=== PATIENT | female | born 1930 | race Caucasian/White ===

== ENCOUNTER 2019-03-02 23:04 | Inpatient (IN) ==
[2019-03-03] MEDS ORDERED: Ondansetron 4 MG/2 ML VIAL IVP PRN (01:29)
[2019-03-03] MEDS ORDERED: Naloxone 0.4 MG/ML INJ IVP PRN (01:29)
--- NOTE | 2019-03-03 02:22 | Internal Med History&Physical ---
Date of Encounter: 03/03/19 Time of Encounter: 02:30 Internal Medicine - H&P: HPI Chief complaint: Left femur fracture Admitted From: Hospital to Hospital Transfer Plans for Post Hospital Care: Home History of present illness: Ms. Coker is a 88 year old female Patient presented to the [facility] after a fall. Daughters at bedside. According to the patient and family, the patient had gotten out of the car and was walking down the sidewalk at the house when she fell over into the yard. She denies losing consciousness, dizziness and does not remember tripping on anything. He daughter states that the patient was not acting strangely before or after the fall. Denies any lateralizing weakness. The patient at baseline but does have some ambulation difficulties, but does not use a walker or cane. She has had previous falls but nothing within the last several months. She was transported to [facility] for further evaluation. [facility] emergency department vital signs: Temperature 97.5, respiratory rate 9, pulse 80, blood pressure 212/78, O2 saturation 99% on room air. CBC: White count 8.9, hemoglobin 10.7, platelets 160. BMP: Notable for Potassium 5.1, creatinine 1.64, glucose 170. INR 1.0 Hip x-ray demonstrated acute fracture of the left femur, with displacement of the proximal left femoral diaphysis extending through the lesser trochanter. Chest x-ray showed no acute cardiopulmonary disease EKG: Sinus rhythm, rate 80, QTc 483ms, Similar to previous EKG At the [facility] emergency department patient received a total of 100 g of fentanyl. She was transferred to [facility] for further management. Upon my evaluation, patient is resting comfortably in hospital bed in no acute distress. Patient's daughters are at bedside. Patient denies chest pain, abdominal pain, nausea, vomiting, diarrhea and constipation. She denies weakness and vision changes. She does have history of stroke in the past 14 years ago but has not fully recovered. Patient is still complaining of left hip pain. The emergency department at [facility] contacted orthopedic surgery who will consult on the patient in the morning. Patient is full code. Past Med Surg Social Fam HX - Past Medical History Medical history: non-contributory, coronary artery disease, CVA, dementia, diabetes, GERD, hyperlipidemia, hypertension, thyroid disease Psychiatric history: depression - Past Surgical History Surgical History: appendectomy, hysterectomy, other Additional surgical history: heart stents - Social History Smoking Status: Never smoker Smokeless Tobacco Status: No Alcohol use: none Drug use: none - Family History Mother History Unknown: Yes Living Status: Father History Unknown: Yes Living Status: Sister History Unknown: Yes Living Status: Still Living Hx Family Cardiac Disorders: Yes (open heart surgery) Internal Medicine - H&P: Meds Aspirin 81 mg PO DAILY 07/04/15 [History] Cholecalciferol (Vitamin D3) [Vitamin D3] 1,000 unit PO DAILY 07/04/15 [History] Clopidogrel [Plavix] 75 mg PO DAILY 07/04/15 [History] Levothyroxine [Synthroid] 50 mcg PO DAILY 07/04/15 [History] Multivitamin [Multivitamins] 1 each PO DAILY 07/04/15 [History] Rosuvastatin [Crestor] 40 mg PO DAILY 07/04/15 [History] Vitamin E Acetate [Vitamin E] 1,000 unit PO DAILY 07/04/15 [History] Escitalopram [Lexapro] 10 mg PO DAILY #30 tablet 07/07/15 [Rx] Magnesium Oxide [Mag-Ox] 400 mg PO BID #60 tablet 07/07/15 [Rx] Pantoprazole Sodium 40 mg PO DAILY #30 tablet.dr 07/07/15 [Rx] Losartan Potassium [Cozaar] 50 mg PO DAILY 05/11/17 [History] Pioglitazone HCl [Actos] 30 mg PO DAILY 05/11/17 [History] Acetaminophen [Tylenol] 500 mg PO Q4HWA tablet 05/14/17 [Rx] Ascorbic Acid [Vitamin C] 500 mg PO DAILY #30 tablet 05/14/17 [Rx] Insulin Glargine,Hum.rec.anlog [Lantus Solostar] 40 unit SQ DAILY #0 05/14/17 [Rx] Iron 65 mg PO DAILY #0 05/14/17 [Rx] Allergy/AdvReac Type Severity Reaction Status Date / Time No Known Allergies Allergy Verified 03/26/18 18:06 All Systems PM: A 10-system review of systems was performed and is negative for pertinent findings except as documented above in the HPI. - Constitutional Vitals: Temp Pulse Resp BP Pulse Ox 97.7 F 82 16 168/75 95 03/03/19 01:42 03/03/19 01:42 03/03/19 01:42 03/03/19 01:42 03/03/19 01:42 General appearance: Present: cooperative, A&O X 3, pleasant, no acute distress, answers questions appropriately Exam: - - Head Head exam: Present: normal inspection - Eye Eye exam: Present: EOMI, normal appearance - Respiratory Respiratory exam: Present: CTAB. Absent: rales, respiratory distress, rhonchi, wheezes - Cardiovascular Cardiovascular exam: Present: RRR. Absent: diastolic murmur, systolic murmur - GI/Abdominal GI/Abdominal exam: Present: normal bowel sounds, soft. Absent: tenderness - Extremities Exam Extremities exam: Present: tenderness, warm, radial pulses palpable and symmetrical. Absent: calf tenderness, pedal edema Additional comments: Left hip pain with palpation. Patient has increased pain with movement. - Neurological Exam Neurological exam: Present: alert, CN II-XII intact, oriented X3, no focal deficits, strengths equal and symetr throughout. Absent: altered, motor sensory deficit, pronater drift, facial droop, speech deficit - Skin Skin exam: Present: dry, normal color, warm - Assessment and Plan (1) Fracture of femur Current Visit: No Status: Acute Assessment and plan: As seen on left hip x-ray. Patient has an acute fracture of the left femur with displacement. Orthopedic surgery called from [facility], will consult in the morning. Nothing by mouth Pain management as needed Follow-up orthopedic surgery recommendations Sexton catheter Qualifiers: Encounter type: initial encounter Femur location: lesser trochanter Fracture type: closed Fracture alignment: displaced Laterality: left Qualified Code(s): S72.122A - Displaced fracture of lesser trochanter of left femur, initial encounter for closed fracture (2) Acute kidney injury Current Visit: No Status: Acute Assessment and plan: Elevated creatinine from baseline. Patient has history of chronic kidney disease stage III. Not given IV fluids at the [facility] emergency room department. Start IV fluid hydration Repeat a.m. labs Avoid nephrotoxic medications Renally dose meds (3) Anemia Current Visit: No Status: Acute Assessment and plan: Likely secondary to chronic disease. Patient is at baseline. Continue to monitor. Qualifiers: Anemia type: due to chronic kidney disease Chronic kidney disease stage: stage 3 (moderate) Qualified Code(s): N18.3 - Chronic kidney disease, stage 3 (moderate); D63.1 - Anemia in chronic kidney disease (4) Hypertension Current Visit: No Status: Acute Assessment and plan: Likely secondary to pain. Blood pressure noted at [facility] with a systolic greater than 200, left untreated at the emergency department. Repeat blood pressure upon arrival 168/75. In team to monitor blood pressure When necessary hydralazine Continue to monitor Qualifiers: Hypertension type: unspecified Qualified Code(s): I10 - Essential (primary) hypertension (5) Diabetes mellitus Current Visit: No Status: Chronic Assessment and plan: Patient is an insulin dependent diabetic Monitor sugars Q6H NPO until surgical evaluation Low dose insulin sliding scale as needed Hold home meds. Qualifiers: Diabetes mellitus type: type 2 Diabetes mellitus detention insulin use: with detention use Diabetes mellitus complication status: with hyperglycemia Qualified Code(s): E11.65 - Type 2 diabetes mellitus with hyperglycemia; Z79.4 - intermediate accountant (current) use of insulin (6) DVT prophylaxis Current Visit: Yes Status: Acute Assessment and plan: SCDs - Time Spent With Patient Total time spent is greater than 50% in coordination of care (as documented) at patient's floor/unit and/or counseling patient:
[2019-03-03] MEDS ORDERED: 0.9 % Sodium Chloride 1,000 ML IVC ONE (04:11)
[2019-03-03] MEDS ORDERED: D5% in Water 1,000 ML IVC PRN (04:14)
[2019-03-03] MEDS ORDERED: Dextrose Gel 15 GM/37.5 ML TUBE PO PRN ×2 (04:14)
[2019-03-03] MEDS ORDERED: *HR* Dextrose 50 % in Water (Syg) 50 ML SYRINGE IVP PRN (04:14)
[2019-03-03 04:20] LABS: Hematocrit 32.7 % (35.3-44.9); Hemoglobin 10.2 g/dL (11.5-15.4); Mean Corpuscular HGB Conc 31.2 g/dL (31.6-35.5); Mean Corpuscular Hemoglobin 30.2 pg (28.0-33.3); Mean Corpuscular Volume 96.7 fL (83.0-100.0); Mean Platelet Volume 9.9 fL (9.4-12.4); Platelet Count 166 K/mcL (140-400); Red Blood Count 3.38 M/mcL (3.82-4.97); Red Cell Distribution Width 13.3 % (11.5-14.5); White Blood Count 15.4 K/mcL (4.3-11.1)
[2019-03-03 04:38] LABS: Calcium 9.1 mg/dL (8.6-10.3); Potassium 6.1 mEq/L (3.5-5.1)
[2019-03-03] MEDS ORDERED: Insulin LISPRO 300 UNITS/3 ML VIAL SQ SCH (06:00)
--- NOTE | 2019-03-03 07:35 | Event Note ---
Date of Encounter: 03/03/19 Time of Encounter: 07:32 Ivana Coker is an 88 F w hx dementia, CAD, CVA, HTN, HLD, DM2, CKD3b, hypothyroidism, GERD, who p/w hip pain after a fall, XR showing L subtrochanteric femur fx. Hyperkalemia: likely 2/2 CEASAR below, ECG w/o changes from baseline - repeat ECG - tele - give 500cc bolus and then resume MIVF - repeat BMP in a few hours - holding ARB CEASAR on CKD3b: noted, fluids as above and monitor L Femur Fracture: XR showing displaced fx of proximal L femoral diaphysis extending through lesser troch - Ortho consulted - NPO - NWB until surgery - PT/OT consults - supportive care for pain/nausea CAD/CVA/HLD: home ASA, plavix, crestor DM2: w hyperglycemia, holding actos, continue lantus 40 and use SSI GERD: home PPI Hypothyroidism: home synthroid 50 Dementia: oriented, lives at home, however does have noticeable short term memory deficits PPx: SCDs then sqh after surgery Tele: yes Activity: per Ortho FEN: NPO then cardiac ADA after surgery, MIVF NS@125 Lines: PIV Consults: Ortho Code: Full Dispo: patient requires inpatient eval and management at this time, anticipate 2-3 days, will need SNF
[2019-03-03] MEDS: Insulin LISPRO 300 UNITS/3 ML VIAL SQ SCH ×4 (08:32→22:24)
[2019-03-03] MEDS: Aspirin 81 MG TAB.CHEW PO SCH (08:40)
[2019-03-03] MEDS ORDERED: Insulin DETEMIR 100 UNIT/ML X5UNITS SQ SCH (09:00)
[2019-03-03] MEDS: 0.9 % Sodium Chloride 500 ML IVC SCH (09:08)
[2019-03-03 10:19] LABS: Potassium 5.3 mEq/L (3.5-5.1)
[2019-03-03 10:20] LABS: Calcium 8.2 mg/dL (8.6-10.3)
[2019-03-03] MEDS ORDERED: Acetaminophen 325 MG TABLET PO SCH (16:00)
[2019-03-03] MEDS: Acetaminophen 325 MG TABLET PO SCH ×2 (16:46→22:19)
[2019-03-03] MEDS: 0.9 % Sodium Chloride 1,000 ML IVC SCH (16:46)
[2019-03-03] MEDS ORDERED: ceFAZolin 2,000 MG in Water for inj. (sterile) 20 ML IVP ONE (21:38)
[2019-03-03] MEDS ORDERED: 0.9 % Sodium Chloride 250 ML IVC SCH (21:45)
--- NOTE | 2019-03-03 21:47 | Orthopedic Consult Note ---
Date of Encounter: 03/03/19 Time of Encounter: 21:40 History of Present Illness Chief complaint: Left hip and thigh pain HPI: Ms. Coker is a 88 year old female who sustained a mechanical fall in her backyard at home late yesterday evening. She initially presented to [facility] with the complaints of pain and inability to ambulate. She had x-rays taken that revealed evidence of a complex left femur fracture. She is admitted for further evaluation and management. Patient denies dizziness vertigo blackouts etc. Denies neurovascular complaints. Denies any other injuries. The patient has had some difficulty with left hip pain in the past. I reviewed the patient's history and physical examination as well as the completed medical record. Pertinent orthopedic examination reveals the left lower extremity to be held in a shortened and minimally rotated position. Distal neurovascular exam is grossly intact. X-rays reveal a proximal femur fracture. Patient also has a severely arthritic hip. Interpretation of the x-rays are extremely difficult due to the presence of the backboard as well as the limited ability to obtain a full true lateral x-ray. This does appear to be a relatively long oblique fracture in the proximal femoral diaphysis. Laboratory data includes a hemoglobin of 10.2 with a platelet count of 166. White blood cell count is 15.4. The patient does have an elevated potassium at 5.3 with an elevated BUN of 32 and a creatinine of 1.72. Impression: Fracture left proximal femur with advanced arthritis left hip Recommendation: Discussed with the patient and her daughters (who have power of contract attorney) the difficulty in treating this fracture that is further complicated by the advanced arthritic hip. Unfortunately, treatment to address both would be extremely difficult and not recommended. Recommend that we proceed with intramedullary nailing of the fracture with a long nail. Would also recommend proceeding with a limited open reduction and cerclage cabling of the fracture by her to nailing to obtain a near anatomic reduction. The patient and family are aware of the diagnosis and management. We discussed the surgical procedure as well as the potential risks and complications including but not limited to bleeding, infection, blood clots, nerve injury, persistent hip stiffness as well as no definitive treatment for the arthritic hip, malunion, delayed or nonunion as well as leg length or rotational deformities. They understand and agree with the plan of care as outlined. Informed consent has been obtained. I scheduled her for surgery tomorrow when operating time is available. We will have blood available as anticipate the patient having a significant amount of blood loss secondary to fracture hematoma. Thank you very much for allowing me to see and care for Mrs. Coker. Sincerely, Ladarius Mishra,DO Past Med Surg Social Fam HX - Past Medical History Medical history: non-contributory, coronary artery disease, CVA, dementia, diabetes, GERD, hyperlipidemia, hypertension, thyroid disease Psychiatric history: depression - Past Surgical History Surgical History: appendectomy, hysterectomy, other Additional surgical history: heart stents - Social History Smoking Status: Never smoker Smokeless Tobacco Status: No Alcohol use: none Drug use: none - Family History Mother History Unknown: Yes Living Status: Father History Unknown: Yes Living Status: Sister History Unknown: Yes Living Status: Still Living Hx Family Cardiac Disorders: Yes (open heart surgery) Medications and Allergies Aspirin 81 mg PO DAILY 07/04/15 [History] Cholecalciferol (Vitamin D3) [Vitamin D3] 1,000 unit PO DAILY 07/04/15 [History] Clopidogrel [Plavix] 75 mg PO DAILY 07/04/15 [History] Levothyroxine [Synthroid] 50 mcg PO DAILY 07/04/15 [History] Multivitamin [Multivitamins] 1 tab PO DAILY 07/04/15 [History] Rosuvastatin [Crestor] 40 mg PO DAILY 07/04/15 [History] Vitamin E Acetate [Vitamin E] 1,000 unit PO DAILY 07/04/15 [History] Magnesium Oxide [Mag-Ox] 400 mg PO BID #60 tablet 07/07/15 [Rx] Losartan Potassium [Cozaar] 50 mg PO DAILY 05/11/17 [History] Pioglitazone HCl [Actos] 30 mg PO DAILY 05/11/17 [History] Ascorbic Acid [Vitamin C] 500 mg PO DAILY #30 tablet 05/14/17 [Rx] Escitalopram [Lexapro] 20 mg PO DAILY 03/03/19 [History] Ferrous Sulfate [Iron] 325 mg PO BID 03/03/19 [History] Insulin Glargine,Hum.rec.anlog [Basaglar Kwikpen U-100] 20 unit SQ QPM 03/03/19 [History] Pantoprazole Sodium [Protonix] 40 mg PO DAILY 03/03/19 [History] Allergy/AdvReac Type Severity Reaction Status Date / Time No Known Allergies Allergy Verified 03/26/18 18:06 All Systems Reviewed: The remainder of the systems were reviewed and are negative Physical Exam - Constitutional Vitals: Temp Pulse Resp BP Pulse Ox 99.0 F 84 16 132/69 93 03/03/19 19:03 03/03/19 19:03 03/03/19 19:03 03/03/19 19:03 03/03/19 19:03 Results - Labs Result Diagrams: 03/03/19 03:38 03/03/19 09:49 Labs: Abnormal lab results WBC 15.4 K/mcL (4.3-11.1) H D 03/03/19 03:38 RBC 3.38 M/mcL (3.82-4.97) L 03/03/19 03:38 Hgb 10.2 g/dL (11.5-15.4) L 03/03/19 03:38 Hct 32.7 % (35.3-44.9) L 03/03/19 03:38 MCHC 31.2 g/dL (31.6-35.5) L 03/03/19 03:38 Sodium 135 mEq/L (136-145) L 03/03/19 09:49 Potassium 5.3 mEq/L (3.5-5.1) H 03/03/19 09:49 BUN 32 mg/dL (8-23) H 03/03/19 09:49 Creatinine 1.72 mg/dL (0.60-1.20) H 03/03/19 09:49 Est GFR ( Amer) 34 (> 60) L 03/03/19 09:49 Est GFR (Non-Af Amer) 28 (> 60) L 03/03/19 09:49 Glucose 189 mg/dL (70-105) H 03/03/19 09:49 POC Glucose 202 mg/dL (70-99) H 03/03/19 05:52 Calcium 8.2 mg/dL (8.6-10.3) L 03/03/19 09:49 H & H 03/03/19 Range/Units 03:38 Hgb 10.2 L (11.5-15.4) g/dL Hct 32.7 L (35.3-44.9) % All other labs normal. - Diagnostic results Hip AP/Lateral x-ray: image reviewed Consult Discharge Plan - Plan Referrals: NONE,PCP [Primary Care Provider] -
[2019-03-04] MEDS: 0.9 % Sodium Chloride 1,000 ML IVC SCH ×3 (04:01→21:04)
[2019-03-04 05:24] LABS: Hematocrit 26.7 % (35.3-44.9); Mean Corpuscular HGB Conc 30.3 g/dL (31.6-35.5); Mean Corpuscular Hemoglobin 30.1 pg (28.0-33.3); Mean Corpuscular Volume 99.3 fL (83.0-100.0); Mean Platelet Volume 9.8 fL (9.4-12.4); Platelet Count 128 K/mcL (140-400); Red Blood Count 2.69 M/mcL (3.82-4.97); Red Cell Distribution Width 13.4 % (11.5-14.5); White Blood Count 9.8 K/mcL (4.3-11.1)
[2019-03-04 05:29] LABS: Hemoglobin 8.1 g/dL (11.5-15.4)
[2019-03-04 05:44] LABS: Calcium 8.2 mg/dL (8.6-10.3); Magnesium 1.8 mg/dL (1.6-2.6); Potassium 5.2 mEq/L (3.5-5.1)
--- NOTE | 2019-03-04 08:35 | Internal Med Progress Note ---
Hospitalist Progress Note - Encounter Date of Encounter: 03/04/19 Time of Encounter: 08:33 - Subjective Interval History: States that her pain is much better controlled today. Daughters present who have several questions which were answered. Pt denies acute needs or pain. No numbness in LLE. No CP, palpitations, SOB, cough, N/V/D. - Exam Vitals: Temp Pulse Resp BP Pulse Ox 98.1 F 79 20 145/69 97 03/04/19 06:35 03/04/19 06:35 03/04/19 06:35 03/04/19 06:35 03/04/19 06:35 Exam: General: NAD, good eye contact, well appearing, elderly Thoracic: Normal breath sounds b/l, no wheezing or crackles Cardio: Normal S1 and S2, regular rate and rhythm Abdomen: Soft, nontender Extremities: Warm, well perfused. DP pulses 2+ b/l. No edema. Skin: Intact. No rashes, bruises, or ulcers Neuro: Awake, fully oriented. Speech fluent. Poor short term memory, decent concentration and attention. - Summary of Assessment and Plan Summary of Assessment and Plan: Ivana Coker is an 88 F w hx dementia, CAD, CVA, HTN, HLD, DM2, CKD3b, hypothyroidism, GERD, who p/w hip pain after a fall, XR showing L subtrochanteric femur fx. L Femur Fracture: XR showing displaced fx of proximal L femoral diaphysis extending through lesser troch - Ortho consulted - NPO - NWB until surgery - PT/OT consults - supportive care for pain/nausea Acute blood loss anemia (poa): 2/2 femur fx - maintain T&C - 2u telephone switchboard operator to OR - maintain Hb >7 Hyperkalemia: likely 2/2 CEASAR below, ECG w/o changes from baseline - repeat ECG - tele - give 500cc bolus and then resume MIVF - repeat BMP in a few hours - holding ARB CEASAR on CKD3b: noted, fluids as above and monitor CAD/CVA/HLD: home ASA, plavix, crestor DM2: w hyperglycemia, holding actos, continue lantus 40 and use SSI GERD: home PPI Hypothyroidism: home synthroid 50 Dementia: oriented, lives at home, however does have noticeable short term memory deficits PPx: SCDs then sqh after surgery Tele: yes Activity: per Ortho FEN: NPO then cardiac ADA after surgery, MIVF NS@125 until after surgery Lines: PIV Consults: Ortho Code: Full Dispo: patient requires inpatient eval and management at this time, anticipate 2-3 days, will need SNF Internal Medicine: Result - Labs CBC & Chem 7: 03/04/19 04:48 03/04/19 04:48 Labs: Short CBC 03/04/19 Range/Units 04:48 WBC 9.8 (4.3-11.1) K/mcL Hgb 8.1 L D (11.5-15.4) g/dL Hct 26.7 L (35.3-44.9) % Plt Count 128 L (140-400) K/mcL BMP 03/03/19 03/04/19 09:49 04:48 Sodium 135 L 136 Potassium 5.3 H 5.2 H Chloride 105 105 Carbon Dioxide 24 22 L BUN 32 H 31 H Creatinine 1.72 H 1.70 H Glucose 189 H 177 H Calcium 8.2 L 8.2 L Consult Discharge Plan - Plan Referrals: NONE,PCP [Primary Care Provider] -
[2019-03-04] MEDS: Acetaminophen 325 MG TABLET PO SCH ×3 (08:59→21:04)
[2019-03-04] MEDS ORDERED: Insulin DETEMIR 100 UNIT/ML X5UNITS SQ SCH (09:00)
[2019-03-04] MEDS: Aspirin 81 MG TAB.CHEW PO SCH (09:00)
[2019-03-04] MEDS: Insulin LISPRO 300 UNITS/3 ML VIAL SQ SCH ×4 (09:01→21:03)
--- NOTE | 2019-03-04 17:28 | Anesthesia Evaluation PreOp ---
Date of Encounter: 03/04/19 Time of Encounter: 17:26 - Past History Planned Operation: Left Femur IM nail Cardiac History: HTN, Hyperlipidemia, Cardiac Stent Pulmonary History: Denies Any Significant HX PROSTHETIST History: CVA, Other (dementia) Other Medical History: Renal (CEASAR on CKD stage 3b), Diabetes Type II, Thyroid (hypo), GERD, Other (anemia) Anesthesia History: No Prior Anesthetic Complications, Past Anesthesia (appy, hysterectomy) Alcohol Use: none Drug use: none Medications and Allergies Aspirin 81 mg PO DAILY 07/04/15 [History] Cholecalciferol (Vitamin D3) [Vitamin D3] 1,000 unit PO DAILY 07/04/15 [History] Clopidogrel [Plavix] 75 mg PO DAILY 07/04/15 [History] Levothyroxine [Synthroid] 50 mcg PO DAILY 07/04/15 [History] Multivitamin [Multivitamins] 1 tab PO DAILY 07/04/15 [History] Rosuvastatin [Crestor] 40 mg PO DAILY 07/04/15 [History] Vitamin E Acetate [Vitamin E] 1,000 unit PO DAILY 07/04/15 [History] Magnesium Oxide [Mag-Ox] 400 mg PO BID #60 tablet 07/07/15 [Rx] Losartan Potassium [Cozaar] 50 mg PO DAILY 05/11/17 [History] Pioglitazone HCl [Actos] 30 mg PO DAILY 05/11/17 [History] Ascorbic Acid [Vitamin C] 500 mg PO DAILY #30 tablet 05/14/17 [Rx] Escitalopram [Lexapro] 20 mg PO DAILY 03/03/19 [History] Ferrous Sulfate [Iron] 325 mg PO BID 03/03/19 [History] Insulin Glargine,Hum.rec.anlog [Basaglar Kwikpen U-100] 20 unit SQ QPM 03/03/19 [History] Pantoprazole Sodium [Protonix] 40 mg PO DAILY 03/03/19 [History] Allergy/AdvReac Type Severity Reaction Status Date / Time No Known Allergies Allergy Verified 03/26/18 18:06 - Meds/Allergy Pre-op Review Medications Reviewed: Yes Allergies Reviewed: Yes Beta Blockers on Current Med List: No Anesthesia Results - Labs 03/04/19 04:48 03/04/19 04:48 - Imaging EKG: report reviewed (Interpretive Statements Sinus rhythm Anterior Q waves, possibly due to LVH Electronically Signed On 03-03-2019 16:46:19 EDT by Paul Ward) Anesthesia Exam Vital Signs/O2 Sat, Most Current Temp Pulse Resp BP Pulse Ox 98.9 F 87 16 150/60 100 03/04/19 14:29 03/04/19 14:29 03/04/19 14:29 03/04/19 14:29 03/04/19 14:29 Weight: 100kg NPO (# of Hours): MN - HEENT Pupil (Motor): Pupils equal, EOMI Mallampati: II Teeth: Edentulous Oral Opening: Greater than 3 - PROSTHETIST PROSTHETIST Motor: Normal RUE, Normal LUE, Normal RLE, Normal Face, Deficit LLE (femur fracture) PROSTHETIST Sensory: Normal: RUE, LUE, RLE, LLE, Face - Cardiac Rhythm: Regular - Pulmonary Breath Sounds: bilateral Clear Respiratory Effort: Symmetrical Anesthesia Assess/Plan ASA Score: 3 Level of consciousness: Oriented Anesthetic Plan: General Monitoring Plan: Standard Monitors Recovery Plan: PACU
[2019-03-04] MEDS ORDERED: *HR* Rocuronium Bromide 50 MG/5 ML VIAL ONE (21:07)
[2019-03-04] MEDS ORDERED: *HR* FentaNYL (PF) 100 MCG/2 ML VIAL ONE ×2 (21:07→23:52)
[2019-03-04] MEDS ORDERED: *HR* Propofol 200 MG/20 ML VIAL IVP ONE (21:07)
[2019-03-04] MEDS ORDERED: Lidocaine -MPF 2% 2 ML VIAL ONE (21:07)
[2019-03-04] MEDS ORDERED: Acetaminophen IV 1,000 MG/100 ML INFUS..BTL ONE (21:18)
[2019-03-04] MEDS ORDERED: *HR* FentaNYL (PF) 100 MCG/2 ML VIAL IVP PRN (21:30)
[2019-03-04] MEDS ORDERED: Naloxone 0.4 MG/ML INJ IVP PRN (21:30)
[2019-03-04] MEDS ORDERED: Dexamethasone 4 MG/ML VIAL ONE (22:14)
[2019-03-04] MEDS: 0.9 % Sodium Chloride 500 ML IVC SCH ×4 (22:36→23:27)
[2019-03-05] MEDS: 0.9 % Sodium Chloride 1,000 ML IVC SCH ×3 (00:04→05:25)
[2019-03-05] MEDS ORDERED: Neostigmine Methylsulfate 3 MG/3 ML SYRINGE ONE (00:29)
--- NOTE | 2019-03-05 01:12 | Operative Note ---
Date of procedure: 03/05/19 Pre-op diagnosis: Displaced left proximal femur fracture Post-op diagnosis: same Procedure: 1. Open reduction internal fixation/intramedullary nailing left femur fracture 2. Fluoroscopic guidance for ORIF/IM nailing left femur fracture Implants: Synthes 11 mm x 400 mm x 130 degree angle TFN A with a 90 mm x 11 mm helical blade and a 48 mm x 5.0 mm distal locking screw and a 1.7 mm braided cable Complications: None Anesthesia: GETA Surgeon: Ladarius Mishra Was there an electrician station assistant present: No Estimated blood loss (cc): 400 Specimen: None Condition: stable Disposition: PACU Procedure in Detail: Gross findings: Preoperative x-rays revealed an extremely arthritic left hip with a complex proximal femoral diaphyseal fracture with then isolated lesser trochanteric fragment. This is a long spiral/oblique fracture. There was an extremely large and deep soft tissue envelope. This complicated the surgical intervention. The fracture was treated by open reduction of the fracture site with bone-holding clamps and a cable applied. This is followed by placing an intramedullary nail from the trochanter down to the distal femur just above the knee. Fluoroscopy was used to guide the reduction of the fracture as well as placement of the nail. After placement of the fracture fixation and anatomic confucianist of the fracture was identified. Large fracture hematoma was encountered and evacuated. The patient did receive 1 unit of packed red blood cells during surgical procedure and 20,000 units of thrombin spray was also utilized for hemostasis. Procedure patient was taken to the operating room and while the hospital bed was administered general anesthesia. Once adequate level of anesthesia had been obtained the patient was transferred to the operating table and the left lower extremity was placed in longitudinal traction and the right lower extremity was positioned out of harm's way and the well leg garcia. Fluoroscopy was introduced and used to guide the initial reduction which was accomplished with a combination of traction adduction and an minimal rotation. Once the fracture alignment was improved significantly the left lower extremity and lower left abdomen were prepped and draped in normal standard fashion for surgery. Incision was made on the lateral side of the proximal femur. This is at the level of the fracture site. Dissection was carried through the extremely thick subcutaneous tissue and down the level of the fascia bronson which was cleared and now split length the incision. Dissection was carried through the vastus lateralis. The fracture site was exposed and a limited subperiosteal manner. The fracture site was cleaned of clot and debris. The fracture was now reduced with direct fracture rigid visualization and placement of several bone-holding clamps. Once a near anatomic reduction was obtained a additional cerclage cable was placed but not finally crimped at this time. Attention was now paid to the intramedullary nailing. A slightly extended incision was made from the level of the the trochanter and carried proximally. Dissection was again carried through the extremely thick and deep adipose tissue down the level of the tensor fascia bronson which was split and dissection very direct down to the tip of the trochanter. Guidewire was placed in the tip of the trochanter and into the femoral canal. The trochanter was then opened up with the coring type reamer. Pin was removed today ball-tipped guide leo was passed down the canal with fluoroscopy verifying a being passed across the fracture site and into the distal femur. The length was measured and a 400 mm was selected. Femoral canal was then reamed up to and including a 12.5 mm with excellent end ostial chatter. The selected an 11 mm x 400 mm nail was placed onto the insertion jig and passed over the guidewire. It was then impacted and seated with position verified with multiplane are fluoroscopy. At this time the helical blade guide was placed. It was able to be placed through the previous incision for the open reduction. Guidepin was then placed into the selected slightly inferior aspect of the neck on the AP view and a much more central position on the lateral view. Length was measured and a 90 mm helical blade was selected. The head and neck were then reamed and then the helical blade was placed and impacted solidly onto position. Helical blade was now locked from above. The insertion jig was removed. The previously placed cable was then retightened and the anchoring devices crimped and the cable cut. Fluoroscopy was then introduced distally and utilizing freehand technique with "perfect circles" a 5.0 mm distal locking screw was placed. Multiplane are fluoroscopy was used to verify excellent placement of the screw and stable position of the nail. At this time wounds were irrigated and closed. Prior to closure and drilling procedure 20,000 units of thrombin spray were utilized for hemostasis. The deep fascia was then closed with running #1 Vicryl. Deep subcutaneous tissue is closed multiple inverted interrupted #1 Vicryl. Medius obtained his tissue then closed with several inverted interrupted 2-0 undyed Vicryl and then skin approximation was accomplished utilizing stainless steel clips. Honeycomb Bioclusive dressings were applied. Patient was now transferred from the operating table to the hospital bed. Patient was now awakened from anesthesia, extubated in the operating room and then transferred to the postanesthesia care unit in stable and satisfactory condition. All sponge and needle evidence for counts are correct. No specimens were sent for pathology.
[2019-03-05] MEDS ORDERED: 0.9 % Sodium Chloride 250 ML IVC SCH (01:22)
[2019-03-05] MEDS ORDERED: *HR* FentaNYL (PF) 100 MCG/2 ML VIAL IVP PRN (01:22)
[2019-03-05] MEDS ORDERED: Dextrose Gel 15 GM/37.5 ML TUBE PO PRN ×2 (01:22)
[2019-03-05] MEDS ORDERED: D5% in Water 1,000 ML IVC PRN (01:22)
[2019-03-05] MEDS ORDERED: Naloxone 0.4 MG/ML INJ IVP PRN (01:22)
[2019-03-05] MEDS ORDERED: *HR* Dextrose 50 % in Water (Syg) 50 ML SYRINGE IVP PRN (01:22)
--- NOTE | 2019-03-05 01:27 | Anesthesia Evaluation Post Op ---
Date of Encounter: 03/05/19 Time of Encounter: 01:26 - Vital Signs Vital Signs: Vital Signs/O2 Sat, Most Current Temp Pulse Resp BP Pulse Ox 98.1 F 86 14 164/89 100 03/05/19 01:03/05/19 01:03/05/19 01:03/05/19 01:03/05/19 01:17 - Lungs Lungs: Clear Ascult./Percussion - Airway Airway: Non-obstructed - Cardiovascular Regular Rate - Mental Status Mental Status: Baseline Status - Pain Pain Scale: 0 Pain Scale used: Numeric (1 - 10) - Nausea Vomiting Nausea Vomiting: Not Present - Hydration Hydration: Ice chips, Sexton catheter - Discharge PostOp Status: Transfer Patient to floor
[2019-03-05 05:34] LABS: Hematocrit 25.7 % (35.3-44.9); Hemoglobin 8.2 g/dL (11.5-15.4); Mean Corpuscular HGB Conc 31.9 g/dL (31.6-35.5); Mean Corpuscular Hemoglobin 30.8 pg (28.0-33.3); Mean Corpuscular Volume 96.6 fL (83.0-100.0); Mean Platelet Volume 9.7 fL (9.4-12.4); Platelet Count 120 K/mcL (140-400); Red Blood Count 2.66 M/mcL (3.82-4.97); Red Cell Distribution Width 13.2 % (11.5-14.5)
[2019-03-05 05:44] LABS: White Blood Count 19.4 K/mcL (4.3-11.1)
[2019-03-05 05:55] LABS: Calcium 7.7 mg/dL (8.6-10.3); Magnesium 1.7 mg/dL (1.6-2.6); Potassium 5.4 mEq/L (3.5-5.1)
[2019-03-05] MEDS ORDERED: *HR* Enoxaparin 30 MG/0.3 ML SYRINGE SQ SCH (06:00)
--- NOTE | 2019-03-05 08:12 | Internal Med Progress Note ---
Hospitalist Progress Note - Encounter Date of Encounter: 03/05/19 Time of Encounter: 08:12 - Subjective Interval History: Pt accompanied by daughter; says she did well after surgery and is not having a lot of pain. Patient today does not remember me like she did yesterday, but does not seem to be confused or disoriented. Willing to work with PT and encouraged to take [place] prior to PT. Denies leg swelling, SOB, cough, or CP. - Exam Vitals: Temp Pulse Resp BP Pulse Ox 98.6 F 78 16 114/63 98 03/05/19 06:28 03/05/19 06:28 03/05/19 06:28 03/05/19 06:28 03/05/19 06:28 Exam: General: NAD, good eye contact, well appearing, elderly, slightly more pale than yesterday Thoracic: Normal breath sounds b/l, no wheezing or crackles Cardio: Normal S1 and S2, regular rate and rhythm Abdomen: Soft, nontender Extremities: Warm, well perfused. DP pulses 2+ b/l. No edema. Skin: Intact. No rashes, bruises, or ulcers. L hip vertical incision c/d/i Neuro: Awake, oriented to person and place. Speech fluent. Poor short term memory, decent concentration and attention. - Summary of Assessment and Plan Summary of Assessment and Plan: Ivana Coker is an 88 F w hx dementia, CAD, CVA, HTN, HLD, DM2, CKD3b, hypothyroidism, GERD, who p/w hip pain after a fall, XR showing L subtrochanteric femur fx. L Femur Fracture: underwent ORIF & IM nail by Ortho Dr Mishra on 03/04, doing well post op - Ortho following - PT/OT consults - supportive care for pain/nausea Acute blood loss anemia: 2/2 femur fx, did get transfused 1u prbc po stoperatively and today hb remains ~8 - maintain T&C, monitor daily and maintain Hb >7 Hyperkalemia: stable in low 5s, CEASAR is improving and suspect K will begin to drop tomorrow - maintain tele - stop MIVF - holding ARB CKD3b: baseline Cr ~1.4, CEASAR resolved CAD/CVA/HLD: home ASA, plavix, crestor DM2: w hyperglycemia, holding actos, continue lantus 40 and use SSI GERD: home PPI Hypothyroidism: home synthroid 50 Dementia: oriented, lives at home, however does have noticeable short term memory deficits PPx: lovenox Tele: yes Activity: per Ortho FEN: cardiac ADA, stop MIVF Lines: PIV Consults: Ortho Code: Full Dispo: patient requires inpatient eval and management at this time, anticipate 1-2 more days, will need SNF Internal Medicine: Result - Labs CBC & Chem 7: 03/05/19 05:23 03/05/19 05:23 Labs: Short CBC 03/05/19 Range/Units 05:23 WBC 19.4 H D (4.3-11.1) K/mcL Hgb 8.2 L (11.5-15.4) g/dL Hct 25.7 L (35.3-44.9) % Plt Count 120 L (140-400) K/mcL BMP 03/05/19 05:23 Sodium 137 Potassium 5.4 H Chloride 111 H Carbon Dioxide 18 L BUN 28 H Creatinine 1.47 H Glucose 279 H Calcium 7.7 L - Impressions Impressions Femur X-Ray 03/05/19 00:23 IMPRESSION: Intraprocedural fluoroscopic spot images as above. See separate procedure report for more information. D/ / Lee Suresh MD / Lee Suresh MD Interpreting Provider: Lee Suresh MD Fluoroscopy 03/05/19 00:23 IMPRESSION: Intraprocedural fluoroscopic spot images as above. See separate procedure report for more information. D/ / Lee Suresh MD / Lee Suresh MD Interpreting Provider: Lee Suresh MD Consult Discharge Plan - Plan Referrals: NONE,PCP [Primary Care Provider] -
[2019-03-05] MEDS: Aspirin 81 MG TAB.CHEW PO SCH (08:31)
[2019-03-05] MEDS: Acetaminophen 325 MG TABLET PO SCH ×3 (08:31→20:44)
[2019-03-05] MEDS: Insulin LISPRO 300 UNITS/3 ML VIAL SQ SCH ×4 (08:39→20:47)
[2019-03-05] MEDS: Insulin DETEMIR 100 UNIT/ML X5UNITS SQ SCH (10:35)
[2019-03-05] MEDS: Ondansetron 4 MG/2 ML VIAL IVP PRN (14:15)
--- NOTE | 2019-03-05 20:33 | Orthopedics Progress Note ---
Date of Encounter: 03/05/19 Time of Encounter: 20:29 Subjective Principal diagnosis: Left proximal femur fracture Interval history: 03/05/2019. Patient is postoperative day #1 (less than 24 hours) from open reduction internal fixation and intramedullary nailing of a left femur fracture. Patient is feeling well today. Pain management appears to be quite appropriate. Vital signs are stable and the patient is afebrile. Dressings show some blood spotting especially on the incision where the ORIF was performed. Hemoglobin is 8.2 this morning. White blood cell count 19.4. Platelets are relatively stable at 120. Potassium remains elevated at 5.4. BUN/creatinine are incrementally improved. Blood sugars remained quite high in the upper 200 range. Impression: POD #1 IM nailing/ORIF left femur fracture Recommendation: Discussed the surgical findings as well as the management of this fracture with the patient and family. They are quite comfortable and plea sed with the results thus far. Patient can be touchdown weightbearing on the extremity. Patient did receive 1 unit of packed red blood cells intraoperatively and received another today. We will recheck labs in a.m. Orthopedic status appears stable. Objective Vital signs: Vital Signs Temp Pulse Resp BP Pulse Ox 03/05/19 19:48 98.1 F 83 16 116/61 94 03/05/19 19:35 98.1 F 83 16 116/61 94 03/05/19 16:34 98.3 F 84 84 122/65 03/05/19 16:19 98.3 F 89 14 122/65 03/05/19 14:08 98.5 F 78 16 134/78 95 03/05/19 11:33 98.7 F 87 16 141/72 96 03/05/19 06:28 98.6 F 78 16 114/63 98 03/05/19 05:21 98.6 F 88 16 112/60 97 03/05/19 03:51 86 16 141/75 99 03/05/19 02:48 88 16 127/73 99 03/05/19 02:15 97.7 F 90 18 141/74 99 03/05/19 02:02 99 03/05/19 01:45 97.7 F 90 18 141/74 99 03/05/19 01:17 98.1 F 86 14 164/89 100 03/05/19 01:05 87 14 173/63 100 03/05/19 00:55 86 16 164/67 99 03/05/19 00:45 98.7 F 80 14 152/55 99 Intake and Output 03/05/19 03/05/19 03/05/19 07:59 15:59 23:59 Intake Total 842 / 1342 500 / 1342 Output Total 700 / 700 Balance -700 / 642 842 / 642 500 / 642 Intake: IV Fluids 842 / 942 100 / 942 0.9 % Sodium Chloride 1,000 ML 742 / 742 @ 125 mls/hr IVC .[facility] Rx#: [id number] Ancef 2,000 MG In 0.9 % Sodium 100 / 200 100 / 200 Chloride 100 ML @ 200 mls/hr IVP Q8HR [facility] Rx#:[id number] Blood Product 400 / 400 Rbcs Leuko Poor As-1 Unit 400 / 400 [id number] Output: Estimated Blood Loss 400 / 400 Catheter 300 / 300 Other: # Voids 1 Blood Glucose* 300 270 175 - Labs CBC & BMP: 03/05/19 05:23 03/05/19 05:23 Labs: Abnormal lab results WBC 19.4 K/mcL (4.3-11.1) H D 03/05/19 05:23 RBC 2.66 M/mcL (3.82-4.97) L 03/05/19 05:23 Hgb 8.2 g/dL (11.5-15.4) L 03/05/19 05:23 Hct 25.7 % (35.3-44.9) L 03/05/19 05:23 MCHC 30.3 g/dL (31.6-35.5) L 03/04/19 04:48 Plt Count 120 K/mcL (140-400) L 03/05/19 05:23 Sodium 135 mEq/L (136-145) L 03/03/19 09:49 Potassium 5.4 mEq/L (3.5-5.1) H 03/05/19 05:23 Chloride 111 mEq/L (98-107) H 03/05/19 05:23 Carbon Dioxide 18 mEq/L (23-29) L 03/05/19 05:23 BUN 28 mg/dL (8-23) H 03/05/19 05:23 Creatinine 1.47 mg/dL (0.60-1.20) H 03/05/19 05:23 Est GFR ( Amer) 41 (> 60) L 03/05/19 05:23 Est GFR (Non-Af Amer) 33 (> 60) L 03/05/19 05:23 Glucose 279 mg/dL (70-105) H 03/05/19 05:23 POC Glucose 269 mg/dL (70-99) H 03/05/19 05:36 Calcium 7.7 mg/dL (8.6-10.3) L 03/05/19 05:23 Crossmatch See Detail 03/03/19 21:49 Consult Discharge Plan - Plan Referrals: NONE,PCP [Primary Care Provider] -
[2019-03-05 21:40] LABS: Hematocrit 24.1 % (35.3-44.9); Hemoglobin 7.8 g/dL (11.5-15.4)
[2019-03-05] MEDS ORDERED: 0.9 % Sodium Chloride 250 ML ONE (22:53)
[2019-03-06] MEDS ORDERED: 0.9 % Sodium Chloride 250 ML ONE (03:22)
[2019-03-06] MEDS: *HR* Enoxaparin 30 MG/0.3 ML SYRINGE SQ SCH (05:37)
[2019-03-06] MEDS: Acetaminophen 325 MG TABLET PO SCH ×3 (08:11→21:46)
[2019-03-06] MEDS: Aspirin 81 MG TAB.CHEW PO SCH (08:11)
[2019-03-06] MEDS: Insulin LISPRO 300 UNITS/3 ML VIAL SQ SCH ×4 (08:13→21:45)
[2019-03-06] MEDS ORDERED: Furosemide 40 MG/4 ML VIAL IVP ONE (09:56)
[2019-03-06] MEDS: Insulin DETEMIR 100 UNIT/ML X5UNITS SQ SCH (10:03)
[2019-03-06 11:10] LABS: Hematocrit 32.8 % (35.3-44.9); Mean Corpuscular HGB Conc 32.3 g/dL (31.6-35.5); Mean Corpuscular Hemoglobin 30.5 pg (28.0-33.3); Mean Corpuscular Volume 94.5 fL (83.0-100.0); Mean Platelet Volume 10.4 fL (9.4-12.4); Platelet Count 116 K/mcL (140-400); Red Blood Count 3.47 M/mcL (3.82-4.97); Red Cell Distribution Width 14.9 % (11.5-14.5); White Blood Count 15.1 K/mcL (4.3-11.1)
[2019-03-06 11:11] LABS: Hemoglobin 10.6 g/dL (11.5-15.4)
[2019-03-06 11:28] LABS: Calcium 7.9 mg/dL (8.6-10.3); Magnesium 1.6 mg/dL (1.6-2.6); Potassium 4.7 mEq/L (3.5-5.1)
--- NOTE | 2019-03-06 12:29 | Internal Med Progress Note ---
Hospitalist Progress Note - Encounter Date of Encounter: 03/06/19 Time of Encounter: 12:27 - Subjective Interval History: Reports improved pain again overnight, only having discomfort with PT/OT. Did have difficulty yesterday with dizziness/nausea/hypotension when attempting to stand multiple times yesterday, for which she was ordered another blood amor sfusion. Looks like overnight her Hb was unchanged and she was given additional 2u, bringing total since surgery to 4. Today, not having that problem. - Exam Vitals: Temp Pulse Resp BP Pulse Ox 98.5 F 104 16 143/68 96 03/06/19 10:54 03/06/19 10:54 03/06/19 10:54 03/06/19 10:54 03/06/19 10:54 Exam: General: NAD, good eye contact, well appearing, elderly Thoracic: bibasilar crackles Cardio: Normal S1 and S2, regular rate and rhythm Abdomen: Soft, nontender Extremities: Warm, well perfused. DP pulses 2+ b/l. Does have pitting edema in b/l legs and L thigh Skin: Intact. No rashes, bruises, or ulcers. L hip vertical incision c/d/i Neuro: Awake, oriented to person. Speech fluent. Poor short term memory, decent concentration and attention. - Summary of Assessment and Plan Summary of Assessment and Plan: Ivana Coker is an 88 F w hx dementia, CAD, CVA, HTN, HLD, DM2, CKD3b, hypothyroidism, GERD, who p/w hip pain after a fall, low Hb, XR showing L subtro chanteric femur fx. L Femur Fracture: underwent ORIF & IM nail by Ortho Dr Mishra on 03/04 - Ortho and PT/OT following, plan for SNF - supportive care for pain/nausea Acute blood loss anemia: 2/2 femur fx, did get transfused 1u prbc postoperatively w Hb ~8 but very symptomatic yesterday so I ordered 1u. Hb stable overnight and appears to have been ordered additional 2u, therefore total now 4u rec'd and Hb this AM 10.6 - maintain T&C, monitor daily Edema: in b/l legs and in L thigh, which if worsens can prevent healing and increase infxn risk. Has rec'd several L fluid and 4u prbc thus far. Family reports pt was remotely on lasix. - Lasix 40 iv x1 and reassess in PM - consider discharge on PO lasix for short duration to continue mild diuresis CEASAR on CKD3b: baseline Cr ~1.4-1.6, spiked today to 1.9 despite improving potassium Hyperkalemia: improved, will continue to downtrend with lasix as above CAD/CVA/HLD: home ASA, plavix, crestor DM2: w hyperglycemia, holding actos, continue lantus 40 and use SSI GERD: home PPI Hypothyroidism: home synthroid 50 Dementia: oriented, lives at home, however does have noticeable short term memory deficits PPx: lovenox Tele: d/c tele today Activity: per Ortho FEN: cardiac ADA, no MIVF Lines: PIV Consults: Ortho Code: Full Dispo: patient requires inpatient eval and management at this time, anticipate 1-2 more days, will need SNF Internal Medicine: Result - Labs CBC & Chem 7: 03/06/19 10:33 03/06/19 10:33 Labs: Short CBC 03/05/19 03/06/19 Range/Units 21:14 10:33 WBC 15.1 H (4.3-11.1) K/mcL Hgb 7.8 L 10.6 L D (11.5-15.4) g/dL Hct 24.1 L 32.8 L (35.3-44.9) % Plt Count 116 L (140-400) K/mcL BMP 03/06/19 10:33 Sodium 133 L Potassium 4.7 Chloride 106 Carbon Dioxide 19 L BUN 33 H Creatinine 1.89 H Glucose 183 H Calcium 7.9 L Consult Discharge Plan - Plan Referrals: NONE,PCP [Primary Care Provider] -
[2019-03-06] MEDS: Furosemide 40 MG/4 ML VIAL IVP SCH (16:14)
--- NOTE | 2019-03-06 19:13 | Orthopedics Progress Note ---
Date of Encounter: 03/06/19 Time of Encounter: 19:10 Subjective Principal diagnosis: Left proximal femur fracture Interval history: 03/05/2019. Patient is postoperative day #1 (less than 24 hours) from open reduction internal fixation and intramedullary nailing of a left femur fracture. Patient is feeling well today. Pain management appears to be quite appropriate. Vital signs are stable and the patient is afebrile. Dressings show some blood spotting especially on the incision where the ORIF was performed. Hemoglobin is 8.2 this morning. White blood cell count 19.4. Platelets are relatively stable at 120. Potassium remains elevated at 5.4. BUN/creatinine are incrementally improved. Blood sugars remained quite high in the upper 200 range. Impression: POD #1 IM nailing/ORIF left femur fracture Recommendation: Discussed the surgical findings as well as the management of this fracture with the patient and family. They are quite comfortable and plea sed with the results thus far. Patient can be touchdown weightbearing on the extremity. Patient did receive 1 unit of packed red blood cells intraoperatively and received another today. We will recheck labs in a.m. Orthopedic status appears stable. 03/06/2019. Patient POD #2 ORIF/IM nailing left femur fracture. Patient is improving, pain well managed. Vital signs are stable. Patient is afebrile. Incisions remained healthy. Scanty serosanguineous drainage. Thigh is edematous as anticipated. Hemoglobin 10.6. Platelet count minimally low at 116. BUN/creatinine are slightly up at this time. Impression: POD #2 ORIF/IM nailing left femur Recommendation: Patient stable from an orthopedics status. Patient can be discharged to rehabilitation facility at any time when medically cleared. We will need follow-up with me in about 2 weeks. Wound care with honeycomb Bioclusive dressing as needed. Touchdown weightbearing only on the left lower extremity. Objective Vital signs: Vital Signs Temp Pulse Resp BP Pulse Ox 03/06/19 15:42 98.8 F 93 19 145/73 95 03/06/19 11:59 99.4 F 94 16 154/73 96 03/06/19 10:26 98 F 96 18 139/73 95 03/06/19 08:03 98.8 F 99 13 145/66 03/06/19 07:00 98.6 F 97 16 156/78 96 03/06/19 04:26 99.6 F 94 16 150/70 95 03/06/19 04:00 98.8 F 94 16 141/73 93 03/06/19 00:02 98.6 F 97 16 158/74 93 03/05/19 23:47 98.6 F 91 14 139/67 91 03/05/19 23:39 98.9 F 92 16 123/66 93 03/05/19 23:03 98.6 F 87 16 130/68 93 03/05/19 19:48 98.1 F 83 16 116/61 94 03/05/19 19:35 98.1 F 83 16 116/61 94 Intake and Output 03/06/19 03/06/19 03/06/19 07:59 15:59 23:59 Intake Total 350 / 700 350 / 700 Output Total 100 / 100 Balance 250 / 600 350 / 600 Intake: Blood Product 350 / 700 350 / 700 Rbcs Leuko Poor As-1 Unit 350 / 350 [id number] Rbcs Leuko Poor As-1 Unit 0 / 350 350 / 350 [id number] Output: Urine 100 / 100 Other: # Voids 1 Blood Glucose* 171 174 256 - Labs CBC & BMP: 03/06/19 10:33 03/06/19 10:33 Labs: Abnormal lab results WBC 15.1 K/mcL (4.3-11.1) H 03/06/19 10:33 RBC 3.47 M/mcL (3.82-4.97) L 03/06/19 10:33 Hgb 10.6 g/dL (11.5-15.4) L D 03/06/19 10:33 Hct 32.8 % (35.3-44.9) L 03/06/19 10:33 MCHC 30.3 g/dL (31.6-35.5) L 03/04/19 04:48 RDW 14.9 % (11.5-14.5) H 03/06/19 10:33 Plt Count 116 K/mcL (140-400) L 03/06/19 10:33 Sodium 133 mEq/L (136-145) L 03/06/19 10:33 Potassium 5.4 mEq/L (3.5-5.1) H 03/05/19 05:23 Chloride 111 mEq/L (98-107) H 03/05/19 05:23 Carbon Dioxide 19 mEq/L (23-29) L 03/06/19 10:33 BUN 33 mg/dL (8-23) H 03/06/19 10:33 Creatinine 1.89 mg/dL (0.60-1.20) H 03/06/19 10:33 Est GFR ( Amer) 30 (> 60) L 03/06/19 10:33 Est GFR (Non-Af Amer) 25 (> 60) L 03/06/19 10:33 Glucose 183 mg/dL (70-105) H 03/06/19 10:33 POC Glucose 171 mg/dL (70-99) H 03/06/19 07:58 Calcium 7.9 mg/dL (8.6-10.3) L 03/06/19 10:33 Crossmatch See Detail 03/03/19 21:49 Consult Discharge Plan - Plan Referrals: NONE,PCP [Primary Care Provider] -
[2019-03-07 05:24] LABS: Hematocrit 30.7 % (35.3-44.9); Mean Corpuscular HGB Conc 32.6 g/dL (31.6-35.5); Mean Corpuscular Hemoglobin 30.3 pg (28.0-33.3); Mean Platelet Volume 10.1 fL (9.4-12.4); Platelet Count 126 K/mcL (140-400); Red Cell Distribution Width 14.9 % (11.5-14.5); White Blood Count 12.8 K/mcL (4.3-11.1)
[2019-03-07] MEDS: Ondansetron 4 MG/2 ML VIAL IVP PRN ×2 (05:36→17:48)
[2019-03-07 05:40] LABS: Calcium 8.1 mg/dL (8.6-10.3); Magnesium 2.2 mg/dL (1.6-2.6); Potassium 4.6 mEq/L (3.5-5.1)
[2019-03-07] MEDS: *HR* Enoxaparin 30 MG/0.3 ML SYRINGE SQ SCH (06:02)
[2019-03-07] MEDS ORDERED: Insulin DETEMIR 100 UNIT/ML X5UNITS SQ SCH (09:00)
[2019-03-07] MEDS: Acetaminophen 325 MG TABLET PO SCH ×2 (09:06→14:23)
[2019-03-07] MEDS: Aspirin 81 MG TAB.CHEW PO SCH (09:06)
[2019-03-07] MEDS: Insulin DETEMIR 100 UNIT/ML X5UNITS SQ SCH (09:08)
[2019-03-07] MEDS: Insulin LISPRO 300 UNITS/3 ML VIAL SQ SCH ×4 (09:11→20:32)
--- NOTE | 2019-03-07 10:11 | Internal Med Progress Note ---
Hospitalist Progress Note - Encounter Date of Encounter: 03/07/19 Time of Encounter: 07:45 - Subjective Interval History: No acute events overnight. Reports overall improvement in her left hip pain. Denies any fever, N/V, or abdominal pain. No chest pain, shortness of breath, or cough. - Exam Vitals: Temp Pulse Resp BP Pulse Ox 98.6 F 88 18 152/75 100 03/07/19 06:59 03/07/19 06:59 03/07/19 06:59 03/07/19 06:59 03/07/19 06:59 Exam: General: NAD, good eye contact, well appearing, elderly Thoracic: Mostly clear to auscultation with scattered rales at the bases Cardio: Normal S1 and S2, regular rate and rhythm Abdomen: Soft, nontender Extremities: L hip dressing c/d/i, improving bilateral L>R LE edema Neuro: Nonfocal - Assessment and Plan (1) Fracture of femur Current Visit: Yes Status: Acute Assessment and Plan: s/p ORIF and IM nailing by orthopedics, POD #2 analgesics, PT/OT (2) Postoperative anemia due to acute blood loss Current Visit: Yes Status: Acute Assessment and Plan: 2/2 femur fx, did get transfused 1u prbc postoperatively w Hb ~8 but was very symptomatic on 03/06 requiring 3 additional orders of pRBC Hb stable around 10 monitor H&H daily (3) Acute renal failure superimposed on stage 4 chronic kidney disease Current Visit: Yes Status: Acute Assessment and Plan: likely due to hypovolemia from acute post-op blood loss as above was given lasix following 4U pRBC, Cr increased from 1.89 - 2.45 today hold off on lasix check CPK, urine eosinophil, and US retroperitoneum (4) CAD (coronary artery disease) Current Visit: Yes Status: Chronic Assessment and Plan: Continue home meds (5) Diabetes mellitus Current Visit: No Status: Chronic Assessment and Plan: Increase Levemir to 30 units, continue low-dose sliding scale coverage DVT Prophylaxis: Subcutaneous Lovenox - Time Spent with Patient Total time spent is greater than 50% in coordination of care (as documented) at patient's floor/unit and/or counseling patient: 25 - 35 minutes Plan of Care Discussed with: patient (discussed with pt's daughter as well) Internal Medicine: Result - Labs CBC & Chem 7: 03/07/19 04:52 03/07/19 04:52 Labs: Short CBC 03/06/19 03/07/19 Range/Units 10:33 04:52 WBC 15.1 H 12.8 H (4.3-11.1) K/mcL Hgb 10.6 L D 10.0 L (11.5-15.4) g/dL Hct 32.8 L 30.7 L (35.3-44.9) % Plt Count 116 L 126 L (140-400) K/mcL BMP 03/06/19 03/07/19 10:33 04:52 Sodium 133 L 132 L Potassium 4.7 4.6 Chloride 106 104 Carbon Dioxide 19 L 21 L BUN 33 H 39 H Creatinine 1.89 H 2.45 H Glucose 183 H 208 H Calcium 7.9 L 8.1 L Consult Discharge Plan - Plan Referrals: NONE,PCP [Primary Care Provider] - (1) Fracture of femur Qualifiers: Encounter type: initial encounter Femur location: lesser trochanter Fracture type: closed Fracture alignment: displaced Laterality: left Qualified Code(s): S72.122A - Displaced fracture of lesser trochanter of left femur, initial encounter for closed fracture (4) CAD (coronary artery disease) Qualifiers: Coronary Disease-Associated Artery/Lesion type: [place] artery [place] vs. transplanted heart: [place] heart Associated angina: without angina Qualified Code(s): I25.10 - Atherosclerotic heart disease of [place] coronary artery without angina pectoris (5) Diabetes mellitus Qualifiers: Diabetes mellitus type: type 2 Diabetes mellitus snf insulin use: with snf use Diabetes mellitus complication status: with hyperglycemia Qualified Code(s): E11.65 - Type 2 diabetes mellitus with hyperglycemia; Z79.4 - terminal worker (current) use of insulin
[2019-03-07] MEDS ORDERED: *HR* Promethazine 25 MG/ML VIAL IVP PRN (20:35)
[2019-03-08] MEDS: *HR* Enoxaparin 30 MG/0.3 ML SYRINGE SQ SCH (05:37)
[2019-03-08] MEDS: Aspirin 81 MG TAB.CHEW PO SCH (07:56)
[2019-03-08] MEDS: Insulin LISPRO 300 UNITS/3 ML VIAL SQ SCH ×4 (07:57→20:55)
[2019-03-08] MEDS: Insulin DETEMIR 100 UNIT/ML X5UNITS SQ SCH (07:57)
[2019-03-08] MEDS: Acetaminophen 325 MG TABLET PO SCH ×4 (07:58→20:55)
[2019-03-08 09:45] LABS: Basophils % 0.2 %; Eosinophils # 0.4 K/mcL (0.0-0.6); Eosinophils % 3.6 %; Hematocrit 29.7 % (35.3-44.9); Hemoglobin 9.5 g/dL (11.5-15.4); Immature Granulocytes % 0.8 % (0-4); Lymphocytes # 0.6 K/mcL (0.6-4.6); Lymphocytes % 5.6 %; Mean Corpuscular Hemoglobin 30.2 pg (28.0-33.3); Mean Corpuscular Volume 94.3 fL (83.0-100.0); Monocytes # 1.1 K/mcL (0.0-1.3); Monocytes % 10.6 %; Neutrophils # 7.9 K/mcL (1.6-8.9); Nucleated Red Blood Cells 0.3 /100 WBC (0); Platelet Count 162 K/mcL (140-400); Red Blood Count 3.15 M/mcL (3.82-4.97); Red Cell Distribution Width 14.9 % (11.5-14.5); Segmented Neutrophils % 79.2 %; White Blood Count 9.9 K/mcL (4.3-11.1)
[2019-03-08 09:59] LABS: Calcium 8.2 mg/dL (8.6-10.3); Potassium 4.2 mEq/L (3.5-5.1)
[2019-03-08] MEDS: Ipratropium/Albuterol Neb 3 ML IH SCH ×4 (12:27→23:24)
--- NOTE | 2019-03-08 13:21 | Internal Med Progress Note ---
Hospitalist Progress Note - Encounter Date of Encounter: 03/08/19 Time of Encounter: 11:00 - Subjective Interval History: No acute events overnight. Patient denies any fever, cough, sputum production, or shortness of breath. States that her left hip pain is minimal when she is at rest. - Exam Vitals: Temp Pulse Resp BP Pulse Ox 98.1 F 91 18 139/65 95 03/08/19 11:23 03/08/19 11:23 03/08/19 11:23 03/08/19 11:23 03/08/19 11:23 Exam: General: NAD, good eye contact, well appearing, elderly Thoracic: Mostly clear to auscultation with scattered rales at the bases Cardio: Normal S1 and S2, regular rate and rhythm Abdomen: Soft, nontender Extremities: L hip dressing c/d/i, improving bilateral L>R LE edema Neuro: Nonfocal - Assessment and Plan (1) Fracture of femur Current Visit: Yes Status: Acute Assessment and Plan: s/p ORIF and IM nailing by orthopedics, POD #3 analgesics, PT/OT (2) Postoperative anemia due to acute blood loss Current Visit: Yes Status: Acute Assessment and Plan: 2/ femur fx, did get transfused 1U prbc postoperatively w Hb ~8 but was very symptomatic on 03/06 requiring 3 additional units Hb stable around 10 monitor H&H daily (3) Acute renal failure superimposed on stage 4 chronic kidney disease Current Visit: Yes Status: Acute Assessment and Plan: likely due to hypovolemia from acute post-op blood loss as above was given lasix following 4U pRBC, Cr increased from 1.89 - 2.45 US retroperitoneum showed bilateral hydronephrosis due to distended bladder luna inserted, Cr unfortunately continued to go up to 2.8 today CPK was noted to be high (which is not completely unexpected in the postop setting) but is downtredning. Ueos -ve continue to hold off on lasix, nephrology consult (4) Wheezing Current Visit: Yes Status: Acute Assessment and Plan: Although patient denied any pulmonary symptoms, she is noted to be wheezing on exam bilaterally No prior history of chronic lung disease, WBC also downtrending without abx check CXR, incentive spirometry, bronchodilators if there is any evidence of PNA, will start levaquin (5) CAD (coronary artery disease) Current Visit: Yes Status: Chronic Assessment and Plan: Continue home meds (6) Diabetes mellitus Current Visit: No Status: Chronic Assessment and Plan: continue basal bolus insulin DVT Prophylaxis: Subcutaneous hep - Time Spent with Patient Total time spent is greater than 50% in coordination of care (as documented) at patient's floor/unit and/or counseling patient: 25 - 35 minutes Plan of Care Discussed with: patient Internal Medicine: Result - Labs CBC & Chem 7: 03/08/19 09:20 03/08/19 09:20 Labs: Short CBC 03/08/19 Range/Units 09:20 WBC 9.9 (4.3-11.1) K/mcL Hgb 9.5 L (11.5-15.4) g/dL Hct 29.7 L (35.3-44.9) % Plt Count 162 (140-400) K/mcL Neutrophils # 7.9 (1.6-8.9) K/mcL BMP 03/08/19 09:20 Sodium 131 L Potassium 4.2 Chloride 101 Carbon Dioxide 22 L BUN 45 H Creatinine 2.80 H Glucose 192 H Calcium 8.2 L - Impressions Impressions Retroperitoneum Ultrasound 03/07/19 19:03 IMPRESSION: 1. Bilateral hydronephrosis possibly related to distended bladder 2. Prevoid bladder volume 868 cc with a large postvoid residual of 734 cc D/ / Hawk Massey MD / Hawk Massey MD Interpreting Provider: Hawk Massey MD Consult Discharge Plan - Plan Referrals: NONE,PCP [Primary Care Provider] - (1) Fracture of femur Qualifiers: Encounter type: initial encounter Femur location: lesser trochanter Fracture type: closed Fracture alignment: displaced Laterality: left Qualified Code(s): S72.122A - Displaced fracture of lesser trochanter of left femur, initial encounter for closed fracture (3) Acute renal failure superimposed on stage 4 chronic kidney disease Qualifiers: Acute renal failure type: unspecified Qualified Code(s): N17.9 - Acute kidney failure, unspecified; N18.4 - Chronic kidney disease, stage 4 (severe) (5) CAD (coronary artery disease) Qualifiers: Coronary Disease-Associated Artery/Lesion type: [place] artery [place] vs. transplanted heart: [place] heart Associated angina: without angina Qualified Code(s): I25.10 - Atherosclerotic heart disease of [place] coronary artery without angina pectoris (6) Diabetes mellitus Qualifiers: Diabetes mellitus type: type 2 Diabetes mellitus director long term care insulin use: with correction use Diabetes mellitus complication status: with hyperglycemia Qualified Code(s): E11.65 - Type 2 diabetes mellitus with hyperglycemia; Z79.4 - director long term care (current) use of insulin
[2019-03-08] MEDS: *HR* Heparin 5,000 UNIT/ML VIAL SQ SCH (17:07)
[2019-03-08] MEDS: Furosemide 40 MG/4 ML VIAL IVP SCH (19:39)
[2019-03-09 03:56] LABS: Hematocrit 27.9 % (35.3-44.9); Hemoglobin 8.9 g/dL (11.5-15.4); Mean Corpuscular HGB Conc 31.9 g/dL (31.6-35.5); Mean Corpuscular Hemoglobin 30.4 pg (28.0-33.3); Mean Corpuscular Volume 95.2 fL (83.0-100.0); Mean Platelet Volume 9.6 fL (9.4-12.4); Platelet Count 174 K/mcL (140-400); Red Blood Count 2.93 M/mcL (3.82-4.97); Red Cell Distribution Width 14.7 % (11.5-14.5)
[2019-03-09] MEDS: Ipratropium/Albuterol Neb 3 ML IH SCH ×5 (04:08→19:38)
[2019-03-09 04:15] LABS: Calcium 8.2 mg/dL (8.6-10.3); Potassium 4.2 mEq/L (3.5-5.1)
[2019-03-09] MEDS: *HR* Heparin 5,000 UNIT/ML VIAL SQ SCH ×2 (05:55→17:50)
[2019-03-09] MEDS: Aspirin 81 MG TAB.CHEW PO SCH (08:52)
[2019-03-09] MEDS: Acetaminophen 325 MG TABLET PO SCH ×3 (08:52→21:40)
[2019-03-09] MEDS: Insulin LISPRO 300 UNITS/3 ML VIAL SQ SCH ×4 (08:53→21:45)
[2019-03-09] MEDS: Insulin DETEMIR 100 UNIT/ML X5UNITS SQ SCH (08:56)
--- NOTE | 2019-03-09 09:37 | Nephrology Consult Note ---
Date of Encounter: 03/09/19 Time of Encounter: 08:45 Assessment and Plan (1) Acute renal failure superimposed on stage 4 chronic kidney disease Status: Resolved Nonoliguric CEASAR with luna catheter in place. The renal U/S demonstrated: IMPRESSION: 1. Bilateral hydronephrosis possibly related to distended bladder 2. Prevoid bladder volume 868 cc with a large postvoid residual of 734 cc Recommend Urology consult. Will start CEASAR on CKD work up. Recommend avoiding nephrotoxic Rx as able; renal dosing. Continue to follow a renal protective strategy. Will follow with you on this complex pt who required a high degree of E/M and MD. Thank you Qualifiers: Acute renal failure type: unspecified Qualified Code(s): N17.9 - Acute kidney failure, unspecified; N18.4 - Chronic kidney disease, stage 4 (severe) (2) Acute kidney injury Status: Acute (3) Anemia Status: Acute Qualifiers: Anemia type: due to chronic kidney disease Chronic kidney disease stage: stage 3 (moderate) Qualified Code(s): N18.3 - Chronic kidney disease, stage 3 (moderate); D63.1 - Anemia in chronic kidney disease (4) Bilateral hydronephrosis Status: Acute History of Present Illness - Reason for Consult Consult date: 03/08/19 Acute Kidney Injury Requesting physician: Masood Powers - Chief Complaint CEASAR - History of Present Illness The patient is a very pleasant 88-year-old female with a past medical history hypertension and etc. who presented earlier in the week. Nephrology was consulted for rising creatinine. She reported having no prior nephrologists to her knowledge. She confirms that she drinks soda. She had a Luna catheter placed in a renal ultrasound was checked. Urology has not yet been consulted. She did not affirm having previous renal stones; however, she thinks she may have had gout in the past. She did not affirm taking [id number] NSAIDs, or having recent nausea, vomiting, or diarrhea while in the last few days. Family history: She did not affirm having any first-degree relatives with a history of ESRD her renal transplant. Past Med Surg Social Fam HX - Past Medical History Medical history: non-contributory, coronary artery disease, CVA, dementia, diabetes, GERD, hyperlipidemia, hypertension, thyroid disease Psychiatric history: depression - Past Surgical History Surgical History: appendectomy, hysterectomy, other Additional surgical history: heart stents - Social History Smoking Status: Never smoker Smokeless Tobacco Status: No Alcohol use: none Drug use: none - Family History Mother History Unknown: Yes Living Status: Father History Unknown: Yes Living Status: Sister History Unknown: Yes Living Status: Still Living Hx Family Cardiac Disorders: Yes (open heart surgery) Medications and Allergies Aspirin 81 mg PO DAILY 07/04/15 [History] Cholecalciferol (Vitamin D3) [Vitamin D3] 1,000 unit PO DAILY 07/04/15 [History] Clopidogrel [Plavix] 75 mg PO DAILY 07/04/15 [History] Levothyroxine [Synthroid] 50 mcg PO DAILY 07/04/15 [History] Multivitamin [Multivitamins] 1 tab PO DAILY 07/04/15 [History] Rosuvastatin [Crestor] 40 mg PO DAILY 07/04/15 [History] Vitamin E Acetate [Vitamin E] 1,000 unit PO DAILY 07/04/15 [History] Magnesium Oxide [Mag-Ox] 400 mg PO BID #60 tablet 07/07/15 [Rx] Losartan Potassium [Cozaar] 50 mg PO DAILY 05/11/17 [History] Pioglitazone HCl [Actos] 30 mg PO DAILY 05/11/17 [History] Ascorbic Acid [Vitamin C] 500 mg PO DAILY #30 tablet 05/14/17 [Rx] Escitalopram [Lexapro] 20 mg PO DAILY 03/03/19 [History] Ferrous Sulfate [Iron] 325 mg PO BID 03/03/19 [History] Insulin Glargine,Hum.rec.anlog [Basaglar Kwikpen U-100] 20 unit SQ QPM 03/03/19 [History] Pantoprazole Sodium [Protonix] 40 mg PO DAILY 03/03/19 [History] Allergy/AdvReac Type Severity Reaction Status Date / Time No Known Allergies Allergy Verified 03/26/18 18:06 Review of Systems All Systems: reviewed and no additional remarkable complaints except as stated Exam - Vital Signs Vital signs: Initial Vital Signs Temp Pulse Resp BP Pulse Ox 97.7 F 82 16 168/75 95 03/03/19 01:42 03/03/19 01:42 03/03/19 01:42 03/03/19 01:42 03/03/19 01:42 Vital Signs - Last 8 Hours Temp Pulse Resp BP Pulse Ox 03/09/19 07:33 18 94 03/09/19 06:55 98.1 F 87 18 132/71 94 03/09/19 05:02 98.1 F 92 20 133/66 91 03/09/19 04:10 16 98 Intake and Output 03/08/19 03/09/19 03/09/19 23:59 07:59 15:59 Intake Total 240 / 240 400 / 400 Output Total 300 / 1900 1150 / 1150 Balance -60 / -1660 -750 / -750 Intake: IV Fluids 50 / 50 Magnesium Sulfate Premix 2gm/ 50 / 50 50mL 2 gm In 50 ml @ 50 mls/hr IVPB ONCE ONE Rx#:[id number] Oral 240 / 240 350 / 350 Output: Catheter 300 / 1900 1150 / 1150 Other: Meal Dinner Percent of Meal Consumed 50% Weight 100.1 kg Blood Glucose* 223 177 Patient Weight 03/09/19 23:59 Weight 100.1 kg - General Appearance General appearance: well-developed, well-nourished, appears started age, obese EENT: ATNC, PERRL, mucous membranes moist Neck: no JVD, supple Respiratory: no kyphosis, clear Cardiology: holosystolic murmur, no edema, regular rate, regular rhythm, normal S1, normal S2 Gastrointestinal: normoactive bowel sounds, no guarding, obese Integumentary: no rash, warm and dry Neurologic: no focal deficit, no asterixis, alert and oriented x3 Musculoskeletal: no deformities, no erythema, no cyanosis Psychiatric: mood/affect appropriate, cooperative Results - Lab Results 03/10/19 06:55 03/11/19 04:58 Most recent lab results 03/09/19 03:39 Calcium 8.2 L Consult Discharge Plan - Plan Instructions: Anemia (GEN) Additional Instructions: Discharge Instructions: Please call [facility] ([phone]), your Primary Care Physician, or report to the Emergency Room if you have any of the following symptoms: Nausea, vomiting, fever greater that 101.5, swelling, chest pain, shortness of breath, increased pain/redness/drainage/odor for your incision site, numbness/tingling, or any other concerning symptoms. ACTIVITY:Weight-bearing as tolerated for 8 weeks with hip dislocation precautions that physical therapy taught you. You may progress as tolerated under the guidance of your physical therapist. You do not need to sleep with a pillow between your legs. You can also seep on the operative side or on your stomach. Incentive Spirometer 10 times an hour. MEDICATIONS: Upon discharge resume your home medications. Take all the medications as prescribed. Take a stool softener if taking narcotic pain medications. Stool softeners are only effective if you drink enough fluids. Drink 6-8 glass of water or fluids a day, unless this is not allowed for another health problem. Despite using stool softeners, if you haven't had a bowel movement in 3 days, please switch to a gentle laxative. Gentle laxatives are sold over the counter. You should have a bowel movement within 24 hours, if not call the office. You will be discharged from the hospital with a prescription for pain medication. You are encouraged to decrease the use of narcotic pain medication as tolerated. Should you require a refill, please call the office. [facility] prescribes narcotic pain medication for only 4-6 weeks after surgery. If you require pain medication beyond this time period, you may be referred to your Primary Care Physician or to the Pain Clinic for further evaluation. Plan ahead for refills on pain medication as many narcotics either need to be picked up at the office or mailed. It is best to call 48-72 hours in advance of needing a prescription refill so you don't run out of medication. To help control the post-operative pain, you may take NSAIDs (Aleve,Advil, Motrin, ibuprofen, naprosyn) or Tylenol as prescribed on the bottle in addition to the pain medication. ANTICOAGULATION (blood thinners): Continue your Aspirin, Lovenox or Coumadin as prescribed to help prevent a blood clot in the leg or in the lungs. As long as your incision remains dry and you tolerate the NSAIDs (Aleve, Advil, Motrin, Ibuprofen, Naprosyn), it is OK to use the NSAIDS while you are taking your anticoagulation medication. Should your incision start to drain, stop the NSAID and contact our office. Common symptoms of blood clot in the legs include: localized pain, swelling, calf tenderness, redness or discoloration of the skin. Blood clot in the lung symptoms include: shortness of breath, rapid pulse, sweating, and chest pain that worsens with deep breathing, coughing up blood, lightheadedness, feelings of anxiety. If you experience any of these symptoms notify your physician immediately, go to the emergency room, or if having trouble breathing, call 911. WOUND CARE: Leave the dressing on for 7 to 10days. You may change the dressing if it is saturated greater than 50%. Do not get the dressing wet at anytime. Wash your hands with antibacterial soap, rinse and dry prior to any wound care. If you have sean the visiting nurse or rehab facility can remove the stapes 10-14 days after surgery and place steri-strips across the wound. Leave the steri-strips in place until they fall off on their own. You may let water from the shower run on top of the steri-strips. If you do not have a visiting nurse or rehab facility, you will need to return to the office at 10-14 days for the sean to be removed. If you have itching or redness around the dressing call the office. FOLLOW-UP: Please follow up with your surgeon in the orthopedic clinic in 6 weeks from the day of surgery. If you have sean that need to be removed, you will need to come back to the office in 10-14 days from the day of surgery. Referrals: Ladarius Mishra DO [Non-Partnered Physician] - 03/21/19 10:30 am () Raza Santiago [Partnered Physician] - 03/27/19 8:30 am
--- NOTE | 2019-03-09 11:08 | Internal Med Progress Note ---
Hospitalist Progress Note - Encounter Date of Encounter: 03/09/19 Time of Encounter: 10:00 - Subjective Interval History: No acute events overnight. She feels that her L hip pain is almost non-existent when resting in bed. No fever, cough, sputum production, or shortness of breath. Breath sound improving after engaging in incentive spirometry more frequently. Having adequate UOP - Exam Vitals: Temp Pulse Resp BP Pulse Ox 98.1 F 87 18 132/71 94 03/09/19 06:55 03/09/19 06:55 03/09/19 07:33 03/09/19 06:55 03/09/19 07:33 Exam: General: NAD, good eye contact, well appearing, elderly Thoracic: Clear to auscultation Cardio: Normal S1 and S2, regular rate and rhythm Abdomen: Soft, nontender : luna draining clear urine Extremities: L hip dressing c/d/i, improving bilateral L>R LE edema Neuro: Nonfocal - Assessment and Plan (1) Fracture of femur Current Visit: Yes Status: Acute Assessment and Plan: s/p ORIF and IM nailing by orthopedics, POD #4 analgesics, PT/OT (2) Acute renal failure superimposed on stage 4 chronic kidney disease Current Visit: Yes Status: Acute Assessment and Plan: likely due to hypovolemia from acute post-op blood loss as above was given lasix following 4U pRBC, Cr increased from 1.89 - 2.45 US retroperitoneum showed bilateral hydronephrosis due to distended bladder luna inserted and pt has good UOP. However, Cr continues to trend up although less rapidly than the last 2 days CPK was noted to be high (which is not completely unexpected in the postop setting) but is downtrending. Ueos -ve appreciate nephrology input, will also consult Urology continue to hold off on lasix (3) Postoperative anemia due to acute blood loss Current Visit: Yes Status: Acute Assessment and Plan: 2/2 femur fx, did get transfused 1U prbc postoperatively w Hb ~8 but was very symptomatic on 03/06 requiring 3 additional units Hb stable around 9-10 monitor H&H daily (4) Wheezing Current Visit: Yes Status: Resolved Assessment and Plan: Although patient denied any pulmonary symptoms, she is noted to be wheezing on exam bilaterally on 03/08 No prior history of chronic lung disease, WBC also downtrending without abx CXR clear, likely atelectasis breath sounds improved on incentive frederic, continue to encourage the pt to use it. Continue bronchodilators (5) CAD (coronary artery disease) Current Visit: Yes Status: Chronic Assessment and Plan: Continue home meds (6) Diabetes mellitus Current Visit: No Status: Chronic Assessment and Plan: continue basal bolus insulin DVT Prophylaxis: SQ hep - Time Spent with Patient Total time spent is greater than 50% in coordination of care (as documented) at patient's floor/unit and/or counseling patient: 25 - 35 minutes Plan of Care Discussed with: patient (discussed with pt's daughter as well) Internal Medicine: Result - Labs CBC & Chem 7: 03/09/19 03:39 03/09/19 03:39 Labs: Short CBC 03/09/19 Range/Units 03:39 WBC 9.0 (4.3-11.1) K/mcL Hgb 8.9 L (11.5-15.4) g/dL Hct 27.9 L (35.3-44.9) % Plt Count 174 (140-400) K/mcL BMP 03/09/19 03:39 Sodium 131 L Potassium 4.2 Chloride 104 Carbon Dioxide 23 BUN 46 H Creatinine 2.97 H Glucose 185 H Calcium 8.2 L - Impressions Impressions Chest X-Ray 03/08/19 14:22 IMPRESSION: Atelectasis versus fluid along the horizontal fissure right lung. D/ / Marie Mejias MD / Marie Mejias MD Interpreting Provider: Marie Mejias MD Consult Discharge Plan - Plan Referrals: NONE,PCP [Primary Care Provider] - (1) Fracture of femur Qualifiers: Encounter type: initial encounter Femur location: lesser trochanter Fracture type: closed Fracture alignment: displaced Laterality: left Qualified Code(s): S72.122A - Displaced fracture of lesser trochanter of left femur, initial encounter for closed fracture (2) Acute renal failure superimposed on stage 4 chronic kidney disease Qualifiers: Acute renal failure type: unspecified Qualified Code(s): N17.9 - Acute kidney failure, unspecified; N18.4 - Chronic kidney disease, stage 4 (severe) (5) CAD (coronary artery disease) Qualifiers: Coronary Disease-Associated Artery/Lesion type: [place] artery [place] vs. transplanted heart: [place] heart Associated angina: without angina Qualified Code(s): I25.10 - Atherosclerotic heart disease of [place] coronary artery without angina pectoris (6) Diabetes mellitus Qualifiers: Diabetes mellitus type: type 2 Diabetes mellitus long term care phlebotomist insulin use: with snf use Diabetes mellitus complication status: with hyperglycemia Qualified Code(s): E11.65 - Type 2 diabetes mellitus with hyperglycemia; Z79.4 - [facility] (current) use of insulin
[2019-03-09 11:17] LABS: Uric Acid 7.4 mg/dL (2.3-7.6)
[2019-03-09 11:26] LABS: Complement C3 174 mg/dL (87-200)
--- NOTE | 2019-03-09 12:32 | Urology - Consult Note ---
Date of Encounter: 03/09/19 Time of Encounter: 12:30 - Assessment and Plan (1) Bilateral hydronephrosis Current Visit: Yes Status: Acute Assessment and plan: Bilateral hydronephrosis secondary to urinary retention with significant overdistention of the bladder with documented PVR approaching 900 mL. Sexton catheters were placed 48 hours ago. Suspect urinary retention is due to generalized decreased medical condition. Patient daughter does report she has some decreased force of stream even prior to admission. Plan: Leave Sexton catheter indwelling upon discharge. My office will arrange for outpatient lower tract evaluation by cystoscopy as well as trial of void. (2) Acute kidney injury Current Visit: No Status: Acute Assessment and plan: Suspect the patient does have some degree of ATN due to bladder outlet obstruction with bilateral hydronephrosis. Sexton catheter was placed 48 hours ago. Patient's renal functions continued to worsen however appear to be plateauing on review of laboratory data. Would anticipate that the patient's renal functions will plateau and began to improve within the next 24-72 hours. Plan: Continue indwelling Sexton. We will reimage by ultrasound tomorrow to confirm resolution of hydronephrosis (3) Urinary retention Current Visit: Yes Status: Acute Assessment and plan: Postoperative urinary retention on baseline of obstructive voiding. Suspect due to postop status as well as generalized decreased medical condition. Plan: Maintain indwelling Sexton catheter upon discharge. My office will arrange for outpatient evaluation including cystoscopy/pelvic/voiding trial in 2-4 weeks. Urology CN:ARGELIA Consult date: 03/09/19 Reason for consult Urology: Other (Urinary retention, acute renal failure, bilateral hydronephrosis) Requesting physician: Masood Powers History of present illness: 88-year-old lady who is a company by her daughter who is the primary historian upon her evaluation at bedside today. The patient was noted to the hospital after a hip fracture on 03/03/2019. She subsequently underwent orthopedic procedure on 03/05/2019. The patient's found have worsening renal functions and underwent evaluation by ultrasound showing bilateral hydronephrosis and an overly distended bladder with a PVR near 900 mL. We have been consult for evaluation and management. A Sexton catheter was placed 2 days ago after her findings on ultrasound. Her renal functions continue to worsen. Past Med Surg Social Fam HX - Past Medical History Medical history: non-contributory, coronary artery disease, CVA, dementia, diabetes, GERD, hyperlipidemia, hypertension, thyroid disease Psychiatric history: depression - Past Surgical History Surgical History: appendectomy, hysterectomy, other Additional surgical history: heart stents - Social History Smoking Status: Never smoker Smokeless Tobacco Status: No Alcohol use: none Drug use: none - Family History Mother History Unknown: Yes Living Status: Father History Unknown: Yes Living Status: Sister History Unknown: Yes Living Status: Still Living Hx Family Cardiac Disorders: Yes (open heart surgery) Medications and Allergies Aspirin 81 mg PO DAILY 07/04/15 [History] Cholecalciferol (Vitamin D3) [Vitamin D3] 1,000 unit PO DAILY 07/04/15 [History] Clopidogrel [Plavix] 75 mg PO DAILY 07/04/15 [History] Levothyroxine [Synthroid] 50 mcg PO DAILY 07/04/15 [History] Multivitamin [Multivitamins] 1 tab PO DAILY 07/04/15 [History] Rosuvastatin [Crestor] 40 mg PO DAILY 07/04/15 [History] Vitamin E Acetate [Vitamin E] 1,000 unit PO DAILY 07/04/15 [History] Magnesium Oxide [Mag-Ox] 400 mg PO BID #60 tablet 07/07/15 [Rx] Losartan Potassium [Cozaar] 50 mg PO DAILY 05/11/17 [History] Pioglitazone HCl [Actos] 30 mg PO DAILY 05/11/17 [History] Ascorbic Acid [Vitamin C] 500 mg PO DAILY #30 tablet 05/14/17 [Rx] Escitalopram [Lexapro] 20 mg PO DAILY 03/03/19 [History] Ferrous Sulfate [Iron] 325 mg PO BID 03/03/19 [History] Insulin Glargine,Hum.rec.anlog [Basaglar Kwikpen U-100] 20 unit SQ QPM 03/03/19 [History] Pantoprazole Sodium [Protonix] 40 mg PO DAILY 03/03/19 [History] Allergy/AdvReac Type Severity Reaction Status Date / Time No Known Allergies Allergy Verified 03/26/18 18:06 Review of Systems - Constitutional no chills, no fever(s) - EENT Nose, mouth and throat: no dizziness, no headache(s) - Cardiovascular no chest pain, no diaphoresis - Respiratory no cough, no dyspnea - Gastrointestinal no abdominal pain, no nausea - Genitourinary Genitourinary: no flank pain - Musculoskeletal no back pain, no muscle weakness - Integumentary no lesions, no rash - Neurological no confusion, no sensory deficit - Psychiatric no anxiety, no confusion - Hematologic/Lymphatic no easy bleeding, no easy bruising - Allergic/Immunologic no throat swelling, no wheezing Exam Initial Vital Signs Temp Pulse Resp BP Pulse Ox 97.7 F 82 16 168/75 95 03/03/19 01:42 03/03/19 01:42 03/03/19 01:42 03/03/19 01:42 03/03/19 01:42 - General physical appearance Present: well developed, no distress - Eyes Present: normal ocular movement. Absent: icteric - ENT Present: normal nares, normal mucosa - Neck Present: trachea midline - Respiratory Present: normal respiratory effort - Abdomen Abdomen: Absent: tender - Genitourinary Present: other (Sexton catheter exiting meatus) - Integumentary Present: no rash, no growths - Neurologic Absent: disoriented, confused - Musculoskeletal Present: other (Normal posture. Moves extremities) Urology Results - Labs 03/09/19 03:39 03/09/19 03:39 Abnormal lab results WBC 12.8 K/mcL (4.3-11.1) H 03/07/19 04:52 RBC 2.93 M/mcL (3.82-4.97) L 03/09/19 03:39 Hgb 8.9 g/dL (11.5-15.4) L 03/09/19 03:39 Hct 27.9 % (35.3-44.9) L 03/09/19 03:39 MCHC 30.3 g/dL (31.6-35.5) L 03/04/19 04:48 RDW 14.7 % (11.5-14.5) H 03/09/19 03:39 Plt Count 126 K/mcL (140-400) L 03/07/19 04:52 Nucleated RBCs/100 WBC 0.3 /100 WBC (0) H 03/08/19 09:20 Sodium 131 mEq/L (136-145) L 03/09/19 03:39 Potassium 5.4 mEq/L (3.5-5.1) H 03/05/19 05:23 Chloride 111 mEq/L (98-107) H 03/05/19 05:23 Carbon Dioxide 22 mEq/L (23-29) L 03/08/19 09:20 BUN 46 mg/dL (8-23) H 03/09/19 03:39 Creatinine 2.97 mg/dL (0.60-1.20) H 03/09/19 03:39 Est GFR ( Amer) 18 (> 60) L 03/09/19 03:39 Est GFR (Non-Af Amer) 15 (> 60) L 03/09/19 03:39 Glucose 185 mg/dL (70-105) H 03/09/19 03:39 POC Glucose 223 mg/dL (70-99) H 03/08/19 20:53 Calcium 8.2 mg/dL (8.6-10.3) L 03/09/19 03:39 Creatine Kinase 1295 Units/L (30-223) H 03/09/19 10:36 Crossmatch See Detail 03/03/19 21:49 Diabetes panel 03/09/19 Range/Units 03:39 Sodium 131 L (136-145) mEq/L Potassium 4.2 (3.5-5.1) mEq/L Chloride 104 (98-107) mEq/L Carbon Dioxide 23 (23-29) mEq/L BUN 46 H (8-23) mg/dL Creatinine 2.97 H (0.60-1.20) mg/dL Glucose 185 H (70-105) mg/dL Calcium 8.2 L (8.6-10.3) mg/dL Calcium panel 03/09/19 Range/Units 03:39 Calcium 8.2 L (8.6-10.3) mg/dL Pituitary panel 03/09/19 Range/Units 03:39 Sodium 131 L (136-145) mEq/L Potassium 4.2 (3.5-5.1) mEq/L Chloride 104 (98-107) mEq/L Carbon Dioxide 23 (23-29) mEq/L BUN 46 H (8-23) mg/dL Creatinine 2.97 H (0.60-1.20) mg/dL Glucose 185 H (70-105) mg/dL Calcium 8.2 L (8.6-10.3) mg/dL Adrenal panel 03/09/19 Range/Units 03:39 Sodium 131 L (136-145) mEq/L Potassium 4.2 (3.5-5.1) mEq/L Chloride 104 (98-107) mEq/L Carbon Dioxide 23 (23-29) mEq/L BUN 46 H (8-23) mg/dL Creatinine 2.97 H (0.60-1.20) mg/dL Glucose 185 H (70-105) mg/dL Calcium 8.2 L (8.6-10.3) mg/dL All other labs normal. - Imaging US - kidney/bladder: report reviewed Consult Discharge Plan - Plan Referrals: NONE,PCP [Primary Care Provider] -
[2019-03-09 17:35] LABS: Bilirubin,Urine Negative (Negative); Blood,Urine Large (Negative); Clarity,Urine Cloudy (Clear); Color,Urine Yellow (Yellow); Glucose,Urine (UA) Normal (Normal); Ketones,Urine Negative (Negative); Leukocyte Esterase,Urine Small (Negative); Nitrite,Urine Negative (Negative); Protein,Urine 30 mg/dL (Neg-Trace); Specific Gravity,Urine 1.014 (1.010-1.025); Urobilinogen,Urine Normal (Normal)
[2019-03-09 17:44] LABS: Bacteria,Urine Few per hpf (None-Few)
[2019-03-09 17:45] LABS: Creatinine,Urine 40 mg/dL; Microalbum/Creatinine Ratio,Ur 100 mcg/mg (Less than 30); Microalbumin,Urine 40 mg/L
[2019-03-09 17:46] LABS: Protein/Creatinine Ratio,Urine 2.28 mg/mg (0.00-0.20)
[2019-03-10] MEDS: Ipratropium/Albuterol Neb 3 ML IH SCH ×6 (00:25→20:04)
[2019-03-10] MEDS: *HR* Heparin 5,000 UNIT/ML VIAL SQ SCH ×2 (06:34→18:55)
[2019-03-10 07:16] LABS: Hematocrit 28.2 % (35.3-44.9); Hemoglobin 9.1 g/dL (11.5-15.4); Mean Corpuscular HGB Conc 32.3 g/dL (31.6-35.5); Mean Corpuscular Hemoglobin 30.7 pg (28.0-33.3); Mean Corpuscular Volume 95.3 fL (83.0-100.0); Mean Platelet Volume 9.4 fL (9.4-12.4); Platelet Count 228 K/mcL (140-400); Red Blood Count 2.96 M/mcL (3.82-4.97); Red Cell Distribution Width 14.8 % (11.5-14.5); White Blood Count 9.2 K/mcL (4.3-11.1)
[2019-03-10 07:34] LABS: Albumin 2.7 g/dL (3.5-5.7); Calcium 8.5 mg/dL (8.6-10.3); Magnesium 2.3 mg/dL (1.6-2.6); Phosphorous 4.2 mg/dL (2.7-4.5); Potassium 4.5 mEq/L (3.5-5.1)
[2019-03-10] MEDS: Acetaminophen 325 MG TABLET PO SCH ×3 (07:49→21:45)
[2019-03-10] MEDS: Aspirin 81 MG TAB.CHEW PO SCH (07:49)
[2019-03-10] MEDS: Insulin LISPRO 300 UNITS/3 ML VIAL SQ SCH ×4 (07:57→21:36)
--- NOTE | 2019-03-10 09:35 | Urology Progress Note ---
Date of Encounter: 03/10/19 Time of Encounter: 08:30 - Assessment and Plan (1) Bilateral hydronephrosis Current Visit: Yes Status: Acute Assessment and plan: Patient is an 88-year-old female who presents with bilateral hydronephrosis, likely secondary to urinary retention. Renal function is improving as anticipated. Serum creatinine is 2.5. A renal ultrasound is pending for this afternoon. (2) Urinary retention Current Visit: Yes Status: Acute Assessment and plan: Patient is an 88-year-old female who presents with a history of urinary retention. Sexton catheter is indwelling and draining sufficiently. Patient denies any discomfort with her catheter. She is aware that she will require an outpatient follow-up within 2-4 weeks for a cystoscopy and trial of void. Progress Note Subjective: no new complaints, feels better Narrative: Patient seen and examined sitting upright in bed eating breakfast in no apparent distress. Patient is tolerating normal diet without nausea or vomiting. Sexton catheter is indwelling and draining transparent, clear yellow urine into bedside bag. Patient denies any fever, chills or flank pain. Objective Initial Vital Signs Temp Pulse Resp BP Pulse Ox 97.7 F 82 16 168/75 95 03/03/19 01:42 03/03/19 01:42 03/03/19 01:42 03/03/19 01:42 03/03/19 01:42 - General physical appearance Present: no distress, no pain - Respiratory Present: normal expansion, normal respiratory effort - Abdomen Present: soft, non tender. Absent: distended - Genitourinary Urine Appearance: Present: Clear - Integumentary Present: no rash, no abnormal pigmentation - Musculoskeletal Present: normal posture - Psychiatric Present: oriented to time, oriented to person, oriented to place, speech is normal, memory intact - Labs 03/10/19 06:55 03/10/19 06:55 Diabetes panel 03/10/19 03/10/19 Range/Units 06:55 06:55 Sodium 132 L (136-145) mEq/L Potassium 4.5 (3.5-5.1) mEq/L Chloride 103 (98-107) mEq/L Carbon Dioxide 25 (23-29) mEq/L BUN 52 H (8-23) mg/dL Creatinine 2.53 H (0.60-1.20) mg/dL Glucose 207 H (70-105) mg/dL Calcium 8.5 L (8.6-10.3) mg/dL Albumin 2.7 L (3.5-5.7) g/dL Calcium panel 03/10/19 03/10/19 Range/Units 06:55 06:55 Calcium 8.5 L (8.6-10.3) mg/dL Phosphorus 4.2 (2.7-4.5) mg/dL Albumin 2.7 L (3.5-5.7) g/dL Pituitary panel 03/10/19 Range/Units 06:55 Sodium 132 L (136-145) mEq/L Potassium 4.5 (3.5-5.1) mEq/L Chloride 103 (98-107) mEq/L Carbon Dioxide 25 (23-29) mEq/L BUN 52 H (8-23) mg/dL Creatinine 2.53 H (0.60-1.20) mg/dL Glucose 207 H (70-105) mg/dL Calcium 8.5 L (8.6-10.3) mg/dL Adrenal panel 03/10/19 03/10/19 Range/Units 06:55 06:55 Sodium 132 L (136-145) mEq/L Potassium 4.5 (3.5-5.1) mEq/L Chloride 103 (98-107) mEq/L Carbon Dioxide 25 (23-29) mEq/L BUN 52 H (8-23) mg/dL Creatinine 2.53 H (0.60-1.20) mg/dL Glucose 207 H (70-105) mg/dL Calcium 8.5 L (8.6-10.3) mg/dL Albumin 2.7 L (3.5-5.7) g/dL Consult Discharge Plan - Plan Referrals: NONE,PCP [Primary Care Provider] -
[2019-03-10] MEDS: Insulin DETEMIR 100 UNIT/ML X5UNITS SQ SCH (09:39)
--- NOTE | 2019-03-10 11:12 | Internal Med Progress Note ---
Hospitalist Progress Note - Encounter Date of Encounter: 03/10/19 Time of Encounter: 09:45 - Subjective Interval History: No acute events overnight. Complains of constipation for the last 5 days. Otherwise, denies any significant left hip pain. No nausea/vomiting, chest pain, shortness of breath, or cough. - Exam Vitals: Temp Pulse Resp BP Pulse Ox 99.2 F 89 17 165/75 96 03/10/19 06:30 03/10/19 06:30 03/10/19 11:03 03/10/19 06:30 03/10/19 11:03 Exam: General: NAD, good eye contact, well appearing, elderly Thoracic: Clear to auscultation Cardio: Normal S1 and S2, regular rate and rhythm Abdomen: Soft, mildly distended, nontender : luna draining clear urine Extremities: L hip dressing c/d/i, improving bilateral L>R LE edema Neuro: Nonfocal - Assessment and Plan (1) Fracture of femur Current Visit: Yes Status: Acute Assessment and Plan: s/p ORIF and IM nailing by orthopedics, POD #5 analgesics, PT/OT (2) Acute renal failure superimposed on stage 4 chronic kidney disease Current Visit: Yes Status: Acute Assessment and Plan: likely due to hypovolemia from acute post-op blood loss as above was given lasix following 4U pRBC US retroperitoneum showed bilateral hydronephrosis due to distended bladder. Luna inserted with good UOP luna inserted and pt has good UOP. However, Cr continues to trend up until yesterday finally trending down to 2.53 while maintaining good UOP appreciate Urology and nephrology input, to keep Luna till outpatient follow up repeat US retroperitoneum today continue to hold off on lasix (3) Postoperative anemia due to acute blood loss Current Visit: Yes Status: Acute Assessment and Plan: 2/2 femur fx, did get transfused 1U prbc postoperatively w Hb ~8 but was very symptomatic on 03/06 requiring 3 additional units Hb stable around 9-10 monitor H&H daily (4) Wheezing Current Visit: Yes Status: Resolved Assessment and Plan: Although patient denied any pulmonary symptoms, she is noted to be wheezing on exam bilaterally on 03/08 No prior history of chronic lung disease, WBC also downtrending without abx CXR clear, likely atelectasis breath sounds improved on incentive frederic, continue to encourage the pt to use it. Continue bronchodilators (5) CAD (coronary artery disease) Current Visit: Yes Status: Chronic Assessment and Plan: Continue home meds (6) Diabetes mellitus Current Visit: No Status: Chronic Assessment and Plan: continue basal bolus insulin (7) Constipation Current Visit: Yes Status: Acute Assessment and Plan: Will try MiraLAX and docusate today, may require enema if refractory DVT Prophylaxis: SQ hep - Time Spent with Patient Total time spent is greater than 50% in coordination of care (as documented) at patient's floor/unit and/or counseling patient: 25 - 35 minutes Plan of Care Discussed with: patient (Discussed with daughter as well) Internal Medicine: Result - Labs CBC & Chem 7: 03/10/19 06:55 03/10/19 06:55 Labs: Short CBC 03/10/19 Range/Units 06:55 WBC 9.2 (4.3-11.1) K/mcL Hgb 9.1 L (11.5-15.4) g/dL Hct 28.2 L (35.3-44.9) % Plt Count 228 (140-400) K/mcL BMP 03/10/19 06:55 Sodium 132 L Potassium 4.5 Chloride 103 Carbon Dioxide 25 BUN 52 H Creatinine 2.53 H Glucose 207 H Calcium 8.5 L Liver Function 03/10/19 Range/Units 06:55 Albumin 2.7 L (3.5-5.7) g/dL Urine 03/09/19 Range/Units 17:00 Urine Color Yellow (Yellow) Urine Clarity Cloudy A (Clear) Urine pH 6.0 (5.0-8.0) pH Units Ur Specific [place] 1.014 (1.010-1.025) Urine Protein 30 H (Neg-Trace) mg/dL Urine Glucose (UA) Normal (Normal) mg/dL Consult Discharge Plan - Plan Referrals: NONE,PCP [Primary Care Provider] - (1) Fracture of femur Qualifiers: Encounter type: initial encounter Femur location: lesser trochanter Fracture type: closed Fracture alignment: displaced Laterality: left Qualified Code(s ): S72.122A - Displaced fracture of lesser trochanter of left femur, initial encounter for closed fracture (2) Acute renal failure superimposed on stage 4 chronic kidney disease Qualifiers: Acute renal failure type: unspecified Qualified Code(s): N17.9 - Acute kidney failure, unspecified; N18.4 - Chronic kidney disease, stage 4 (severe) (5) CAD (coronary artery disease) Qualifiers: Coronary Disease-Associated Artery/Lesion type: redding artery [place] vs. transplanted heart: redding heart Associated angina: without angina Qualified Code(s): I25.10 - Atherosclerotic heart disease of redding coronary artery without angina pectoris (6) Diabetes mellitus Qualifiers: Diabetes mellitus type: type 2 Diabetes mellitus senior living insulin use: with senior living use Diabetes mellitus complication status: with hyperglycemia Qualified Code(s): E11.65 - Type 2 diabetes mellitus with hyperglycemia; Z79.4 - emt intermediate (current) use of insulin (7) Constipation Qualifiers: Constipation type: unspecified constipation type Qualified Code(s): K59.00 - Constipation, unspecified
--- NOTE | 2019-03-10 12:03 | Nephrology Progress Note ---
Date of Encounter: 03/10/19 Time of Encounter: 12:01 - Assessment and Plan (1) Acute renal failure superimposed on stage 4 chronic kidney disease Current Visit: Yes Status: Acute Nonoliguric CEASAR with luna catheter in place. GFR is 18 today, improved from 15. CK elevated at 1295 1 liter NS ordered for today. Uop noted 1150 for 24 hour period and 900 already for today. The renal U/S demonstrated: IMPRESSION: 1. Bilateral hydronephrosis possibly related to distended bladder 2. Prevoid bladder volume 868 cc with a large postvoid residual of 734 cc Recommend Urology consult, appreciate recommendations. CEASAR on CKD workup pending. Recommend avoiding nephrotoxic Rx as able: renal dosing. Continue to follow a renal protective strategy. Qualifiers: Acute renal failure type: unspecified Qualified Code(s): N17.9 - Acute kidney failure, unspecified; N18.4 - Chronic kidney disease, stage 4 (severe) (2) Acute kidney injury Current Visit: No Status: Acute (3) Anemia Current Visit: No Status: Acute Hgb is 9.1, will defer transfusions to primary team, s/p 4 transfusions of PRBCs. Qualifiers: Anemia type: due to chronic kidney disease Chronic kidney disease stage: stage 3 (moderate) Qualified Code(s): N18.3 - Chronic kidney disease, stage 3 (moderate); D63.1 - Anemia in chronic kidney disease (4) Bilateral hydronephrosis Current Visit: Yes Status: Acute Subjective Principal diagnosis: Left proximal femur fracture Interval history: Pt seen and examined. Doing well. Denies any chest pain or shortness of breath. Denies nausea, vomiting, diarrhea. Luna cath noted. Pt is poor historian, unsure of history or medications. Objective - Vital Signs Vital signs: Vital Signs Temp Pulse Resp BP Pulse Ox 03/10/19 11:03 17 96 03/10/19 08:06 18 95 03/10/19 06:30 99.2 F 89 16 165/75 93 03/10/19 04:33 17 92 03/10/19 00:26 18 91 03/10/19 00:08 98.7 F 88 20 152/62 92 03/09/19 21:40 93 03/09/19 20:02 98.6 F 86 20 151/72 93 03/09/19 19:38 16 93 03/09/19 16:14 98.7 F 89 18 142/69 98 03/09/19 15:58 16 97 03/09/19 12:17 98.7 F 91 18 136/71 97 Intake and Output 03/09/19 03/10/19 03/10/19 23:59 07:59 15:59 Intake Total 1100 / 1340 240 / 1340 Output Total 1400 / 1400 Balance -300 / -60 240 / -60 Intake: Oral 1100 / 1340 240 / 1340 Output: Urine 500 / 500 Catheter 900 / 900 Other: Meal Breakfast Percent of Meal Consumed 15% Blood Glucose* 245 205 - General Appearance General appearance: Present: well-developed, well-nourished EENT: Present: ATNC, hearing intact, vision intact Neck: Present: supple Respiratory: Present: clear Cardiology: Present: edema (trace bilat lower extemity edema noted.), normal S1, normal S2 Gastrointestinal: Present: normoactive bowel sounds, no tenderness, no guarding Integumentary: Present: no rash, warm and dry Neurologic: Present: alert and oriented x3 Musculoskeletal: Present: no deformities, no erythema Psychiatric: Present: mood/affect appropriate, cooperative - Lab 03/10/19 06:55 03/10/19 06:55 Most recent lab results 03/10/19 03/10/19 06:55 06:55 Calcium 8.5 L Phosphorus 4.2 Magnesium 2.3 Consult Discharge Plan - Plan Referrals: NONE,PCP [Primary Care Provider] -
[2019-03-10] MEDS ORDERED: 0.9 % Sodium Chloride 1,000 ML IVC SCH (13:30)
[2019-03-10] MEDS: Sennosides/Docusate Sodium TABLET PO SCH (21:46)
[2019-03-10] MEDS ORDERED: *HR* Promethazine 25 MG/ML VIAL IVP PRN (22:40)
[2019-03-11] MEDS: Ipratropium/Albuterol Neb 3 ML IH SCH ×5 (00:10→15:21)
[2019-03-11] MEDS: *HR* Heparin 5,000 UNIT/ML VIAL SQ SCH (05:30)
[2019-03-11 05:56] LABS: Calcium 8.4 mg/dL (8.6-10.3); Potassium 4.3 mEq/L (3.5-5.1)
[2019-03-11] MEDS: Aspirin 81 MG TAB.CHEW PO SCH (08:22)
[2019-03-11] MEDS: Acetaminophen 325 MG TABLET PO SCH ×2 (08:22→14:10)
[2019-03-11] MEDS: Sennosides/Docusate Sodium TABLET PO SCH (08:23)
[2019-03-11] MEDS: Insulin DETEMIR 100 UNIT/ML X5UNITS SQ SCH ×2 (08:25→08:27)
[2019-03-11] MEDS: Insulin LISPRO 300 UNITS/3 ML VIAL SQ SCH ×2 (08:33→11:53)
[2019-03-11] MEDS: Ondansetron 4 MG/2 ML VIAL IVP PRN (08:54)
--- NOTE | 2019-03-11 09:49 | Discharge Summary ---
- NOTES TO OUTPATIENT PROVIDER Notes to Outpatient Provider: Follow-up with orthopedics, nephrology, and urology as outpatient Orders not resulted at time of discharge: Pending orders 03/09/19 10:36 MELISSA IgG JM rflx IFA Routine [place] Lambda Qnt FLC w Ratio Routine MPO/PR3 (ANCA) Antibodies Routine 03/09/19 17:00 Immunofixation,Urine (BJP) Routine Date of Encounter: 03/11/19 Time of Encounter: 07:45 - Discharge Diagnosis (1) Fracture of femur Priority: Primary Status: Acute Qualifiers: Encounter type: initial encounter Femur location: lesser trochanter Fracture type: closed Fracture alignment: displaced Laterality: left Qualified Code(s): S72.122A - Displaced fracture of lesser trochanter of left femur, initial encounter for closed fracture (2) Acute renal failure superimposed on stage 4 chronic kidney disease Priority: Secondary Status: Acute Qualifiers: Acute renal failure type: unspecified Qualified Code(s): N17.9 - Acute kidney failure, unspecified; N18.4 - Chronic kidney disease, stage 4 (severe) (3) Postoperative anemia due to acute blood loss Priority: Secondary Status: Acute (4) Wheezing Priority: Secondary Status: Resolved (5) CAD (coronary artery disease) Priority: Secondary Status: Chronic Qualifiers: Coronary Disease-Associated Artery/Lesion type: [place] artery [place] vs. transplanted heart: [place] heart Associated angina: without angina Qualified Code(s): I25.10 - Atherosclerotic heart disease of [place] coronary artery without angina pectoris (6) Diabetes mellitus Priority: Secondary Status: Chronic Qualifiers: Diabetes mellitus type: type 2 Diabetes mellitus infection control rn insulin use: with custodial use Diabetes mellitus complication status: with hyperglycemia Qualified Code(s): E11.65 - Type 2 diabetes mellitus with hyperglycemia; Z79.4 - precision grinder (current) use of insulin (7) Constipation Priority: Secondary Status: Acute Qualifiers: Constipation type: unspecified constipation type Qualified Code(s): K59.00 - Constipation, unspecified Hospital course: Ms. Coker is a 88 year old female with history of CAD, DM, CKD 3b, hypothyroidism, HTN, who was admitted for L subtrochanteric femur fracture following a mechanical fall. Underwent ORIF on 03/04 by orthopedics. Her postoperative hospital course was complicated by acute blood loss anemia requiring 4 units of PRBC. It was accompanied by acute on chronic kidney failure likely due to a combination of ATN from hypovolemia and urinary retention. Ultrasound retroperitoneum showed bilateral hydronephrosis and distended bladder. Luna was inserted with good urine output and subsequent US did show resolution of hydronephrosis. Managed in consultation with nephrology and urology and Luna is to remain in-situ with URology follow up in 2-4 weeks for a cystoscopy and voiding trial. She will also follow-up with orthopedics and nephrology as outpatient. She will be discharged to inpatient rehabilitation for further physical therapy on 03/11. Discharge discussed with: patient, family, nurse, social work, case management, healthcare economics consultant - Time Spent with Patient Total time spent providing and/or coordinating discharge services: 36 mins - Discharge Medications Prescriptions: Continued Cholecalciferol (Vitamin D3) [Vitamin D3] 1,000 unit PO DAILY Vitamin E Acetate [Vitamin E] 1,000 unit PO DAILY Multivitamin [Multivitamins] 1 tab PO DAILY Aspirin 81 mg PO DAILY Rosuvastatin [Crestor] 40 mg PO DAILY Levothyroxine [Synthroid] 50 mcg PO DAILY Clopidogrel [Plavix] 75 mg PO DAILY Magnesium Oxide [Mag-Ox] 400 mg PO BID #60 tablet Insulin Glargine,Hum.rec.anlog [Basaglar Kwikpen U-100] 20 unit SQ QPM Ferrous Sulfate [Iron] 325 mg PO BID Escitalopram [Lexapro] 20 mg PO DAILY Pantoprazole Sodium [Protonix] 40 mg PO DAILY Losartan Potassium [Cozaar] 50 mg PO DAILY Pioglitazone HCl [Actos] 30 mg PO DAILY Ascorbic Acid [Vitamin C] 500 mg PO DAILY #30 tablet Home Medications: Aspirin 81 mg PO DAILY 07/04/15 [History] Cholecalciferol (Vitamin D3) [Vitamin D3] 1,000 unit PO DAILY 07/04/15 [History] Clopidogrel [Plavix] 75 mg PO DAILY 07/04/15 [History] Levothyroxine [Synthroid] 50 mcg PO DAILY 07/04/15 [History] Multivitamin [Multivitamins] 1 tab PO DAILY 07/04/15 [History] Rosuvastatin [Crestor] 40 mg PO DAILY 07/04/15 [History] Vitamin E Acetate [Vitamin E] 1,000 unit PO DAILY 07/04/15 [History] Magnesium Oxide [Mag-Ox] 400 mg PO BID #60 tablet 07/07/15 [Rx] Losartan Potassium [Cozaar] 50 mg PO DAILY 05/11/17 [History] Pioglitazone HCl [Actos] 30 mg PO DAILY 05/11/17 [History] Ascorbic Acid [Vitamin C] 500 mg PO DAILY #30 tablet 05/14/17 [Rx] Escitalopram [Lexapro] 20 mg PO DAILY 03/03/19 [History] Ferrous Sulfate [Iron] 325 mg PO BID 03/03/19 [History] Insulin Glargine,Hum.rec.anlog [Basaglar Kwikpen U-100] 20 unit SQ QPM 03/03/19 [History] Pantoprazole Sodium [Protonix] 40 mg PO DAILY 03/03/19 [History] Allergies/Adverse Reactions: Allergy/AdvReac Type Severity Reaction Status Date / Time No Known Allergies Allergy Verified 03/26/18 18:06 Date of admission: 03/03/19 15:29 Primary care physician: PCP NONE Consults: 03/03/19 01:08 Consult to Head Kiln Operator [CONS] Routine Reason for SW Consult: possible rehab placement needed 03/03/19 01:30 Consult to Orthopedic Surgery [CONS] Routine Consulting Provider: Ladarius Mishra Reason for Consult: Left hip fracture, called from [facility] Call Completed: Yes 03/05/19 01:22 Consult to Occupational Therapy [CONS] Routine Comment: Evaluate, develop and implement POC Reason for Consult: adl Does patient have active BEDREST order?: No Is patient medically & hemodynamically stable?: Yes Consult to Physical Therapy [CONS] Routine Comment: Evaluate, develop and implement POC Reason for Consult: fx Does patient have active BEDREST order?: No Is patient medically & hemodynamically stable?: Yes 03/08/19 10:22 Consult to Nephrology [CONS] Routine Consulting Provider: [facility]/ILENE/LILIA/NORMA Reason for Consult: acute on chronic kidney failure Call Completed: Yes 03/09/19 11:02 Consult to Urology [CONS] Routine Consulting Provider: [facility] Reason for Consult: acute on chronic kidney failure, bilateral hydronephrosis Call Completed: Yes - Constitutional Vitals: Temp Pulse Resp BP Pulse Ox 98.9 F 84 18 150/76 98 03/11/19 07:33 03/11/19 07:33 03/11/19 07:33 03/11/19 07:33 03/11/19 07:33 General appearance: Present: cooperative, A&O X 3, pleasant, no acute distress, answers questions appropriately Exam: General: NAD, good eye contact, well appearing, elderly Thoracic: Clear to auscultation Cardio: Normal S1 and S2, regular rate and rhythm Abdomen: Soft, mildly distended, nontender : luna draining clear urine Extremities: L hip dressing c/d/i, improving bilateral L>R LE edema Neuro: Nonfocal - Patient Status Disposition: Transfer Inpatient Rehab Fac Condition: Fair Functional capacity at discharge: uses cane/walker - Discharge Instructions Instructions: Anemia (GEN) Follow Up With: NONE,PCP [Primary Care Provider] - Ladarius Mishra DO [Non-Partnered Physician] - Raza Byrd DO [Partnered Physician] - Raza Santiago [Partnered Physician] - - Diet and Activity Activity: as per physical therapy Diet: diabetic diet
--- NOTE | 2019-03-11 09:58 | Physician Discharge Referral ---
ExtendedCare Referral Info Institutional Level of Care: Intermediate - Diagnosis (1) Fracture of femur Priority: Primary Status: Acute (2) Acute renal failure superimposed on stage 4 chronic kidney disease Priority: Secondary Status: Resolved (3) Postoperative anemia due to acute blood loss Priority: Secondary Status: Resolved (4) Wheezing Priority: Secondary Status: Resolved (5) CAD (coronary artery disease) Priority: Secondary Status: Chronic (6) Diabetes mellitus Priority: Secondary Status: Chronic (7) Constipation Priority: Secondary Status: Acute Prognosis: Fair - Transfer Medications Home Medications: Aspirin 81 mg PO DAILY 07/04/15 [History] Cholecalciferol (Vitamin D3) [Vitamin D3] 1,000 unit PO DAILY 07/04/15 [History] Clopidogrel [Plavix] 75 mg PO DAILY 07/04/15 [History] Levothyroxine [Synthroid] 50 mcg PO DAILY 07/04/15 [History] Multivitamin [Multivitamins] 1 tab PO DAILY 07/04/15 [History] Rosuvastatin [Crestor] 40 mg PO DAILY 07/04/15 [History] Vitamin E Acetate [Vitamin E] 1,000 unit PO DAILY 07/04/15 [History] Magnesium Oxide [Mag-Ox] 400 mg PO BID #60 tablet 07/07/15 [Rx] Losartan Potassium [Cozaar] 50 mg PO DAILY 05/11/17 [History] Pioglitazone HCl [Actos] 30 mg PO DAILY 05/11/17 [History] Ascorbic Acid [Vitamin C] 500 mg PO DAILY #30 tablet 05/14/17 [Rx] Escitalopram [Lexapro] 20 mg PO DAILY 03/03/19 [History] Ferrous Sulfate [Iron] 325 mg PO BID 03/03/19 [History] Insulin Glargine,Hum.rec.anlog [Basaglar Kwikpen U-100] 20 unit SQ QPM 03/03/19 [History] Pantoprazole Sodium [Protonix] 40 mg PO DAILY 03/03/19 [History] Allergies/Adverse Reactions: Allergy/AdvReac Type Severity Reaction Status Date / Time No Known Allergies Allergy Verified 03/26/18 18:06 - Respiratory Orders Smoking Cessation: Smoking cessation has been advised. For more information, call the [place] Tobacco Quit Line at 7-107-YFKD-NOW. - Advance Directives Code Status: Full Code - Rehabiliation Orders Rehab Orders: Evaluation for Physical Therapy, Evaluation for Occupational Therapy - Diet Orders No Concentrated Sweets CERTIFICATION: I certify that the transfer of the above named patient to an Extended Care Facility is necessary for the continuing treatment of the diagnosis listed. The above information is true and accurate reflection of patient's current condition. Confidential - Redisclosure prohibited without a patient's written consent.
--- NOTE | 2019-03-11 09:59 | Urology Progress Note ---
<Ashia Mireles N - Last Filed: 03/11/19 09:56> Date of Encounter: 03/11/19 Time of Encounter: 09:00 - Assessment and Plan (1) Bilateral hydronephrosis Status: Acute Assessment and plan: Patient is an 88-year-old female who presents with urinary retention and bilateral hydronephrosis. Patient underwent renal ultrasound yesterday afternoon that confirmed resolution of hydronephrosis. Patient has been maximally drained with indwelling Sexton catheter, and renal function is improving. She will require indwelling Sexton catheter upon discharge. I discussed placing her catheter to a leg bag drainage with straps versus a bedside bag. Catheter care instructions will be discussed with nursing staff. Patient is aware she will require an outpatient follow-up within 2-[address] Santiago. (2) Urinary retention Status: Acute Progress Note Subjective: no new complaints, feels better Narrative: Patient seen and examined sitting upright in bed in no apparent distress. Patient accompanied by nursing staff at bedside. Sexton catheter is indwelling and draining sufficiently. Objective Initial Vital Signs Temp Pulse Resp BP Pulse Ox 97.7 F 82 16 168/75 95 03/03/19 01:42 03/03/19 01:42 03/03/19 01:42 03/03/19 01:42 03/03/19 01:42 - General physical appearance Present: no distress, no pain - Respiratory Present: normal expansion, normal respiratory effort - Abdomen Present: soft, non tender. Absent: distended - Genitourinary Urine Appearance: Present: Clear - Integumentary Present: no rash, no abnormal pigmentation - Musculoskeletal Present: normal posture - Psychiatric Present: oriented to time, oriented to person, oriented to place, speech is normal, memory intact - Labs 03/10/19 06:55 03/11/19 04:58 Diabetes panel 03/11/19 Range/Units 04:58 Sodium 136 (136-145) mEq/L Potassium 4.3 (3.5-5.1) mEq/L Chloride 103 (98-107) mEq/L Carbon Dioxide 26 (23-29) mEq/L BUN 48 H (8-23) mg/dL Creatinine 2.04 H (0.60-1.20) mg/dL Glucose 139 H (70-105) mg/dL Calcium 8.4 L (8.6-10.3) mg/dL Calcium panel 03/11/19 Range/Units 04:58 Calcium 8.4 L (8.6-10.3) mg/dL Pituitary panel 03/11/19 Range/Units 04:58 Sodium 136 (136-145) mEq/L Potassium 4.3 (3.5-5.1) mEq/L Chloride 103 (98-107) mEq/L Carbon Dioxide 26 (23-29) mEq/L BUN 48 H (8-23) mg/dL Creatinine 2.04 H (0.60-1.20) mg/dL Glucose 139 H (70-105) mg/dL Calcium 8.4 L (8.6-10.3) mg/dL Adrenal panel 03/11/19 Range/Units 04:58 Sodium 136 (136-145) mEq/L Potassium 4.3 (3.5-5.1) mEq/L Chloride 103 (98-107) mEq/L Carbon Dioxide 26 (23-29) mEq/L BUN 48 H (8-23) mg/dL Creatinine 2.04 H (0.60-1.20) mg/dL Glucose 139 H (70-105) mg/dL Calcium 8.4 L (8.6-10.3) mg/dL Consult Discharge Plan - Plan Instructions: Anemia (GEN) Additional Instructions: Discharge Instructions: Please call [facility] ([phone]), your Primary Care Physician, or report to the Emergency Room if you have any of the following symptoms: Nausea, vomiting, fever greater that 101.5, swelling, chest pain, shortness of breath, increased pain/redness/drainage/odor for your incision site, numbness/tingling, or any other concerning symptoms. ACTIVITY:Weight-bearing as tolerated for 8 weeks with hip dislocation precautions that physical therapy taught you. You may progress as tolerated un jaja the guidance of your physical therapist. You do not need to sleep with a pillow between your legs. You can also seep on the operative side or on your stomach. Incentive Spirometer 10 times an hour. MEDICATIONS: Upon discharge resume your home medications. Take all the medications as prescribed. Take a stool softener if taking narcotic pain medications. Stool softeners are only effective if you drink enough fluids. Drink 6-8 glass of water or fluids a day, unless this is not allowed for another health problem. Despite using stool softeners, if you haven't had a bowel movement in 3 days, please switch to a gentle laxative. Gentle laxatives are sold over the counter. You should have a bowel movement within 24 hours, if not call the office. You will be discharged from the hospital with a prescription for pain medication. You are encouraged to decrease the use of narcotic pain medication as tolerated. Should you require a refill, please call the office. [facility] prescribes narcotic pain medication for only 4-6 weeks after surgery. If you require pain medication beyond this time period, you may be referred to your Primary Care Physician or to the Pain Clinic for further evaluation. Plan ahead for refills on pain medication as many narcotics either need to be picked up at the office or mailed. It is best to call 48-72 hours in advance of needing a prescription refill so you don't run out of medication. To help control the post-operative pain, you may take NSAIDs (Aleve,Advil, Motri n, ibuprofen, naprosyn) or Tylenol as prescribed on the bottle in addition to the pain medication. ANTICOAGULATION (blood thinners): Continue your Aspirin, Lovenox or Coumadin as prescribed to help prevent a blood clot in the leg or in the lungs. As long as your incision remains dry and you tolerate the NSAIDs (Aleve, Advil, Motrin, Ibuprofen, Naprosyn), it is OK to use the NSAIDS while you are taking your anticoagulation medication. Should your incision start to drain, stop the NSAID and contact our office. Common symptoms of blood clot in the legs include: localized pain, swelling, calf tenderness, redness or discoloration of the skin. Blood clot in the lung symptoms include: shortness of breath, rapid pulse, sweating, and chest pain that worsens with deep breathing, coughing up blood, lightheadedness, feelings of anxiety. If you experience any of these symptoms notify your physician immediately, go to the emergency room, or if having trouble breathing, call 911. WOUND CARE: Leave the dressing on for 7 to 10days. You may change the dressing if it is saturated greater than 50%. Do not get the dressing wet at anytime. Wash your hands with antibacterial soap, rinse and dry prior to any wound care. If you have sean the visiting nurse or rehab facility can remove the stapes 10-14 days after surgery and place steri-strips across the wound. Leave the steri-strips in place until they fall off on their own. You may let water from the shower run on top of the steri-strips. If you do not have a visiting nurse or rehab facility, you will need to return to the office at 10-14 days for the sean to be removed. If you have itching or redness around the dressing call the office. FOLLOW-UP: Please follow up with your surgeon in the orthopedic clinic in 6 weeks from the day of surgery. If you have sean that need to be removed, you will need to come back to the office in 10-14 days from the day of surgery. Referrals: Ladarius Mishra DO [Non-Partnered Physician] - 03/21/19 10:30 am () Raza Santiago [Partnered Physician] - 03/27/19 8:30 am <Raza Santiago - Last Filed: 03/12/19 11:25> Date of Encounter: 03/12/19 - Assessment and Plan (1) Bilateral hydronephrosis Status: Acute Assessment and plan: I am in agreement with the assessment and plan as outlined by our Urologic Surgery Department Physician [employer] Sales Consultant, Aline. Electronic medical record review along with renal ultrasound findings of resolved Center. (2) Acute kidney injury Status: Acute (3) Urinary retention Status: Acute Objective Initial Vital Signs Temp Pulse Resp BP Pulse Ox 97.7 F 82 16 168/75 95 03/03/19 01:42 03/03/19 01:42 03/03/19 01:42 03/03/19 01:42 03/03/19 01:42 - Labs 03/10/19 06:55 03/11/19 04:58
[2019-03-11 12:01] VITALS: BP 156/77
--- NOTE | 2019-03-11 13:20 | Nephrology Progress Note ---
Date of Encounter: 03/11/19 Time of Encounter: 09:00 - Assessment and Plan (1) Acute renal failure superimposed on stage 4 chronic kidney disease Current Visit: Yes Status: Resolved Nonoliguric CEASAR with luna catheter in place. GFR is 23 today, f/u with Dr. Byrd in 4-6 weeks. BMP in 7 days with CK. Uop noted 2700 for 24 hour period and 1100 already for today. The renal U/S demonstrated: IMPRESSION: 1. Bilateral hydronephrosis possibly related to distended bladder 2. Prevoid bladder volume 868 cc with a large postvoid residual of 734 cc Recommend Urology consult, appreciate recommendations. CEASAR on CKD workup pending. Recommend avoiding nephrotoxic Rx as able: renal dosing. Continue to follow a renal protective strategy. Qualifiers: Acute renal failure type: unspecified Qualified Code(s): N17.9 - Acute kidney failure, unspecified; N18.4 - Chronic kidney disease, stage 4 (severe) (2) Acute kidney injury Current Visit: No Status: Acute See above. (3) Anemia Current Visit: No Status: Acute No new CBC for today. Qualifiers: Anemia type: due to chronic kidney disease Chronic kidney disease stage: stage 3 (moderate) Qualified Code(s): N18.3 - Chronic kidney disease, stage 3 (moderate); D63.1 - Anemia in chronic kidney disease (4) Bilateral hydronephrosis Current Visit: Yes Status: Acute Appreciate urology Subjective Principal diagnosis: Left proximal femur fracture Interval history: Pt seen and examined. Doing well. Denies any chest pain or shortness of breath. Denies nausea, vomiting, diarrhea. Luna cath noted. Pt is poor historian, unsure of history or medications. Objective - Vital Signs Vital signs: Vital Signs Temp Pulse Resp BP Pulse Ox 03/11/19 11:59 98.4 F 87 18 156/77 93 03/11/19 11:02 16 92 03/11/19 07:33 98.9 F 84 18 150/76 98 03/11/19 07:15 14 94 03/11/19 03:40 15 98 03/11/19 03:32 100 18 169/74 94 03/11/19 00:10 18 91 03/10/19 22:47 98.6 F 89 17 165/74 93 03/10/19 22:00 95 03/10/19 20:04 16 96 03/10/19 19:51 98.6 F 85 16 160/75 95 03/10/19 15:52 17 97 Intake and Output 03/10/19 03/11/19 03/11/19 23:59 07:59 15:59 Intake Total 200 / 1540 Output Total 500 / 2700 1100 / 1220 120 / 1220 Balance -300 / -1160 -1100 / -1220 -120 / -1220 Intake: Oral 200 / 1540 Output: Emesis 120 / 120 Catheter 500 / 2200 1100 / 1100 Other: # Voids 1 Weight 100.2 kg Blood Glucose* 136 151 108 Patient Weight 03/11/19 23:59 Weight 100.2 kg - General Appearance General appearance: Present: well-developed, well-nourished EENT: Present: ATNC, hearing intact, vision intact Neck: Present: supple Respiratory: Present: clear Cardiology: Present: edema (trace bilat lower extremity edema), normal S1, normal S2 Gastrointestinal: Present: normoactive bowel sounds, no tenderness, no guarding Integumentary: Present: no rash, warm and dry Neurologic: Present: alert and oriented x3 Additional Comments: AxO x 3, poor historian. Musculoskeletal: Present: no deformities, no erythema Psychiatric: Present: mood/affect appropriate, cooperative - Lab 03/10/19 06:55 03/11/19 04:58 Most recent lab results 03/11/19 04:58 Calcium 8.4 L Consult Discharge Plan - Plan Instructions: Anemia (GEN) Referrals: Ladarius Mishra DO [Non-Partnered Physician] - Raza Byrd DO [Partnered Physician] - Raza Santiago [Partnered Physician] - NONE,PCP [Primary Care Provider] -
[2019-03-11] MEDS ORDERED: Bisacodyl 10 MG RECTAL SUPPOSITORY RC PRN (13:41)
[2019-03-11 18:53] LABS: Urine Collection Volume RANDOM mL
[2019-03-11 19:07] LABS: Kappa Qnt Free Light Chains 4.7 mg/dL (0.33-1.94); Lambda Qnt Free Light Chains 2.98 mg/dL (0.57-2.63)
[2019-03-12 09:44] LABS: ANA IgG by ELISA NONE DETECTED (None Detected); Serine Protease-3 Antibody 0 AU/mL (0-19)
[2019-03-13 06:37] LABS: Alpha 2 Globulin (PEP) 1.18 g/dL (0.48-1.05)
[2019-03-13 10:23] LABS: IFE Reflexed IFE Done; Immunoglobulin A 116 mg/dL (68-408); Immunoglobulin G 404 mg/dL (768-1632); Immunoglobulin M 36 mg/dL (35-263)
== END 2019-03-11 18:24 | DRG 480 ==
LOC: 3NENU → SUATTDRO 03-03 00:40
PROVIDERS: ADMIT Family Medicine; ATTEND Internal Medicine